=== PATIENT | male | born 1965 | race African-American/Black ===

== ENCOUNTER 2021-03-04 22:49 | Inpatient (IN) ==
[2021-03-04 23:20] LABS: Basophils % 0.2 % (0.0-0.8); Hematocrit 44.1 VOL% (42.0-52.0); Hemoglobin 13.5 GM/DL (14.0-18.0); Immature Granulocytes % 0.9 %; Lymphocytes % 8.9 % (21.2-54.2); Mean Corpuscular HGB Conc 30.6 GM/DL (32-36); Mean Platelet Volume 10.2 FL (9.6-12.0); Monocytes % 3.1 % (1.7-12.7); Neutrophils % 86.9 % (38.7-73.9); Platelet Count 367 T/CUMM (130-400); Red Blood Count 5.13 MC/CUMM (3.8-5.5); Red Cell Distribution Width 13.9 % (9.3-17.3); White Blood Count 11.2 T/CUMM (4-12)
[2021-03-04 23:29] LABS: PT Patient Result 11.4 SECS (10.5-12.0); Partial Thromboplastin Time 28.2 SECS (23.9-33.8)
[2021-03-04 23:40] LABS: ABG Base Excess 2.7 MMOL/L (-2.5-2.5); ABG HCO3 26.9 MMOL/L (20-26); ABG Oxygen Saturation 87.5 % (95-100); ABG PCO2 40.3 MM HG (35-48); ABG PH 7.443 (7.35-7.45); ABG PO2 59.4 MM HG (80-95); ABG TCO2 28.2 MMOL/L (23-27)
[2021-03-04 23:42] LABS: Alanine Aminotransferase 48 U/L (16-61); Alkaline Phosphatase 59 U/L (45-117); Aspartate Amino Transferase 66 U/L (0-37); Blood Urea Nitrogen 14 MG/DL (7-18); Calcium 8.5 MG/DL (8.5-10.1); Carbon Dioxide 26 MMOL/L (21-32); Estimated Glom Filtration Rate 188 ML/MIN; Ferritin 1261.8 ng/ml (26-388); Glucose 137 MG/DL (74-106); Osmolality,Calculated 268.4 MOS/KG (273-304); Potassium 3.8 MMOL/L (3.5-5.1); Sodium 133 MMOL/L (136-145); Total Protein 7.3 G/DL (6.4-8.2)
[2021-03-05] MEDS ORDERED: DEXAMETHASONE 4 MG/1 ML VIAL IV STA (00:16)
[2021-03-05] MEDS ORDERED: SODIUM CHLORIDE 0.9% 1,000 ML IV STA (00:16)
[2021-03-05] MEDS ORDERED: cefTRIAXone 2,000 MG in SODIUM CHLORIDE 0.9% 100 ML IV STA (00:16)
[2021-03-05] MEDS ORDERED: TOCILIZUMAB 800 MG in SODIUM CHLORIDE 0.9% 100 ML IV ONE (00:26)
[2021-03-05] MEDS ORDERED: SODIUM CHLORIDE 0.9% 2,000 ML IV STA (00:29)
[2021-03-05] MEDS: AZITHROMYCIN INJ 500 MG in SODIUM CHLORIDE 0.9% 250 ML IV SCH (01:15)
[2021-03-05] MEDS ORDERED: ALBUTEROL INHALER 18 GM INH PRN (03:03)
[2021-03-05] MEDS: ALBUTEROL INHALER 18 GM INH SCH ×4 (08:27→18:07)
[2021-03-05] MEDS: CHOLECALCIFEROL 1,000 UNIT TABLET PO SCH (08:27)
[2021-03-05] MEDS: DEXAMETHASONE 4 MG/1 ML VIAL IV SCH (08:27)
[2021-03-05] MEDS: ASCORBIC ACID 500 MG TABLET PO SCH ×2 (08:27→21:30)
[2021-03-05] MEDS: ZINC GLUCONATE 50 MG TABLET PO SCH (08:27)
[2021-03-05] MEDS: FAMOTIDINE 20 MG TABLET PO SCH ×2 (08:27→21:30)
[2021-03-05 09:16] LABS: Ferritin 1275.5 ng/ml (26-388)
[2021-03-05] MEDS ORDERED: ENOXAPARIN 150 MG/ML SYRINGE SUBCUT SCH (12:30)
[2021-03-05] MEDS: cefTRIAXone 1,000 MG in SODIUM CHLORIDE 0.9% 100 ML IV SCH (21:50)
[2021-03-06] MEDS: AZITHROMYCIN INJ 500 MG in SODIUM CHLORIDE 0.9% 250 ML IV SCH (01:16)
[2021-03-06] MEDS: ALBUTEROL INHALER 18 GM INH SCH ×6 (01:20→21:17)
[2021-03-06 06:04] LABS: Basophils % 0.1 % (0.0-0.8); Hematocrit 42.4 VOL% (42.0-52.0); Immature Granulocytes Absolute 0.09 #; Lymphocytes # 0.7 10*3/uL (1.4-4.0); Lymphocytes % 7.4 % (21.2-54.2); Mean Corpuscular HGB Conc 30.7 GM/DL (32-36); Mean Corpuscular Volume 87.6 FL (87-102); Mean Platelet Volume 10.6 FL (9.6-12.0); Monocytes % 5.6 % (1.7-12.7); Neutrophils % 85.9 % (38.7-73.9); Platelet Count 332 T/CUMM (130-400); Red Blood Count 4.84 MC/CUMM (3.8-5.5); Red Cell Distribution Width 14.2 % (9.3-17.3); White Blood Count 9.2 T/CUMM (4-12)
[2021-03-06 06:36] LABS: Albumin 2.4 G/DL (3.4-5.0); Bilirubin,Total 1.1 MG/DL (0.20-1.00); Calcium 8.8 MG/DL (8.5-10.1); Ferritin 1105.4 ng/ml (26-388); Osmolality,Calculated 276.5 MOS/KG (273-304); Total Protein 7.4 G/DL (6.4-8.2)
[2021-03-06 07:34] LABS: Sedimentation Rate-Westergren 54 MM/HR (0-20)
[2021-03-06] MEDS: ZINC GLUCONATE 50 MG TABLET PO SCH (10:21)
[2021-03-06] MEDS: DEXAMETHASONE 4 MG/1 ML VIAL IV SCH (10:21)
[2021-03-06] MEDS: CHOLECALCIFEROL 1,000 UNIT TABLET PO SCH (10:21)
[2021-03-06] MEDS: FAMOTIDINE 20 MG TABLET PO SCH ×2 (10:21→21:17)
[2021-03-06] MEDS: ASCORBIC ACID 500 MG TABLET PO SCH ×2 (10:21→21:17)
[2021-03-06] MEDS ORDERED: ENOXAPARIN 150 MG/ML SYRINGE SUBCUT SCH (11:00)
[2021-03-06] MEDS ORDERED: REMDESIVIR 200 MG in SODIUM CHLORIDE 0.9% 210 ML IV ONE (11:00)
[2021-03-06] MEDS: RIVAROXABAN 20 MG TABLET PO SCH (12:37)
[2021-03-06] MEDS: cefTRIAXone 1,000 MG in SODIUM CHLORIDE 0.9% 100 ML IV SCH (21:17)
[2021-03-07] MEDS: ALBUTEROL INHALER 18 GM INH SCH ×7 (01:13→22:12)
[2021-03-07] MEDS: AZITHROMYCIN INJ 500 MG in SODIUM CHLORIDE 0.9% 250 ML IV SCH (01:58)
[2021-03-07] MEDS: MELATONIN 3 MG TABLET PO PRN (02:25)
[2021-03-07 05:46] LABS: Basophils % 0.3 % (0.0-0.8); Hematocrit 41.6 VOL% (42.0-52.0); Hemoglobin 12.9 GM/DL (14.0-18.0); Immature Granulocytes % 1.5 %; Immature Granulocytes Absolute 0.17 #; Lymphocytes # 0.8 10*3/uL (1.4-4.0); Lymphocytes % 7.2 % (21.2-54.2); Mean Corpuscular Volume 87.9 FL (87-102); Mean Platelet Volume 10.1 FL (9.6-12.0); Monocytes % 5.6 % (1.7-12.7); NRBC # 0.03 10*3/uL; Neutrophils % 85.4 % (38.7-73.9); Platelet Count 332 T/CUMM (130-400); Red Blood Count 4.73 MC/CUMM (3.8-5.5); Red Cell Distribution Width 13.9 % (9.3-17.3); White Blood Count 11.1 T/CUMM (4-12)
[2021-03-07 06:17] LABS: Albumin 2.3 G/DL (3.4-5.0); Bilirubin,Total 0.6 MG/DL (0.20-1.00); Calcium 8.9 MG/DL (8.5-10.1); Ferritin 1124.3 ng/mL (26-388); Osmolality,Calculated 274.7 MOS/KG (273-304); Potassium 3.9 MMOL/L (3.5-5.1); Total Protein 7.3 G/DL (6.4-8.2)
[2021-03-07 07:13] LABS: Sedimentation Rate-Westergren 55 MM/HR (0-20)
[2021-03-07] MEDS: ASCORBIC ACID 500 MG TABLET PO SCH ×2 (09:14→21:17)
[2021-03-07] MEDS: ZINC GLUCONATE 50 MG TABLET PO SCH (09:14)
[2021-03-07] MEDS: FAMOTIDINE 20 MG TABLET PO SCH ×2 (09:15→21:16)
[2021-03-07] MEDS: CHOLECALCIFEROL 1,000 UNIT TABLET PO SCH (09:15)
[2021-03-07] MEDS: DEXAMETHASONE 4 MG/1 ML VIAL IV SCH (09:15)
[2021-03-07] MEDS: RIVAROXABAN 20 MG TABLET PO SCH (09:15)
[2021-03-07] MEDS: REMDESIVIR 100 MG in SODIUM CHLORIDE 0.9% 100 ML IV SCH (11:22)
[2021-03-07 15:05] LABS: ABG Base Excess 6.1 MMOL/L (-2.5-2.5); ABG HCO3 29.6 MMOL/L (20-26); ABG Oxygen Saturation 82.1 % (95-100); ABG PCO2 42.6 MM HG (35-48); ABG PH 7.464 (7.35-7.45); ABG PO2 48.7 MM HG (80-95); ABG TCO2 26.7 MMOL/L (23-27)
[2021-03-07] MEDS: cefTRIAXone 1,000 MG in SODIUM CHLORIDE 0.9% 100 ML IV SCH (21:17)
[2021-03-07] MEDS ORDERED: VECURONIUM 10 MG VIAL IV ONE ×2 (22:02→22:45)
[2021-03-07] MEDS ORDERED: ETOMIDATE 20 MG/10 ML VIAL IV ONE ×3 (22:02→22:43)
[2021-03-07] MEDS ORDERED: methylPREDNISolone SOD SUC 125 MG/2 ML VIAL IV STA (22:10)
[2021-03-07] MEDS ORDERED: methylPREDNISolone SOD SUC 125 MG/2 ML VIAL ONE (22:11)
[2021-03-07 22:28] LABS: ABG Base Excess 4.9 MMOL/L (-2.5-2.5); ABG HCO3 28.1 MMOL/L (20-26); ABG Oxygen Saturation 67.4 % (95-100); ABG PCO2 46.5 MM HG (35-48); ABG PH 7.421 (7.35-7.45); ABG TCO2 26.5 MMOL/L (23-27)
[2021-03-07 22:31] LABS: ABG PO2 39.8 MM HG (80-95)
[2021-03-08 00:02] LABS: ABG Base Excess -1.4 MMOL/L (-2.5-2.5); ABG HCO3 23.2 MMOL/L (20-26); ABG Oxygen Saturation 94.8 % (95-100); ABG PCO2 64.1 MM HG (35-48); ABG PH 7.247 (7.35-7.45); ABG PO2 98.9 MM HG (80-95); ABG TCO2 24.8 MMOL/L (23-27)
[2021-03-08] MEDS ORDERED: MIDAZOLAM 10 MG/2 ML VIAL ONE (00:11)
[2021-03-08] MEDS ORDERED: ROCURONIUM 100 MG/10 ML VIAL IV ONE ×2 (00:17→00:33)
[2021-03-08] MEDS ORDERED: fentaNYL 100 MCG/2 ML VIAL ONE (00:17)
[2021-03-08] MEDS ORDERED: fentaNYL 100 MCG/2 ML VIAL IV ONE (00:33)
[2021-03-08] MEDS ORDERED: MIDAZOLAM 2 MG/2 ML VIAL IV ONE (00:33)
[2021-03-08] MEDS: ALBUTEROL INHALER 18 GM INH SCH ×6 (02:29→23:40)
[2021-03-08 02:34] LABS: Bacteria,Urine Occasional /HPF (Few); Bilirubin,Urine Negative (Negative); Blood, Urine Negative (Negative); Glucose,Urine (UA) >=500 mg/dL (Negative); Ketones,Urine 5 mg/dL (Negative); Mucus,Urine Many /LPF (Occasional); Nitrite,Urine Negative (Negative); Protein,Urine >=500 MG/DL; RBC,Urine 37 /HPF (0-4); Urine Appearance CLOUDY (Clear); Urine Urobilinogen < 2.0 EU/DL (0.2-1.0)
[2021-03-08 02:35] LABS: Urine Color Yellow (Yellow)
[2021-03-08] MEDS: PHENYLEPHRINE DRIP 40 MG/250 ML PREMIX IV PRN ×2 (04:00→08:11)
[2021-03-08 04:44] LABS: ABG Base Excess -0.1 MMOL/L (-2.5-2.5); ABG HCO3 24.4 MMOL/L (20-26); ABG Oxygen Saturation 99.3 % (95-100); ABG PCO2 58.3 MM HG (35-48); ABG PH 7.289 (7.35-7.45); ABG TCO2 24.9 MMOL/L (23-27); Allen Test Positive; Pt O2 Delivery Device Ventilator
[2021-03-08 05:10] LABS: Basophils % 0.2 % (0.0-0.8); Hematocrit 41.2 VOL% (42.0-52.0); Hemoglobin 12.4 GM/DL (14.0-18.0); Immature Granulocytes Absolute 0.74 #; Lymphocytes # 0.6 10*3/uL (1.4-4.0); Lymphocytes % 3.3 % (21.2-54.2); Mean Corpuscular HGB Conc 30.1 GM/DL (32-36); Mean Corpuscular Volume 89.6 FL (87-102); Mean Platelet Volume 10.3 FL (9.6-12.0); Monocytes % 3.1 % (1.7-12.7); NRBC # 0.14 10*3/uL; Neutrophils % 89.4 % (38.7-73.9); Platelet Count 319 T/CUMM (130-400); Red Cell Distribution Width 14.1 % (9.3-17.3); White Blood Count 18.6 T/CUMM (4-12)
[2021-03-08 05:31] LABS: Hypochromasia Slight; Lymphocytes 3 % (20-55); Platelet Estimate Adequate; Segmented Neutrophils 96 % (50-85); Total Cells Counted 100
[2021-03-08 05:39] LABS: Albumin 2.3 G/DL (3.4-5.0); Bilirubin,Total 1.3 MG/DL (0.20-1.00); Calcium 8.5 MG/DL (8.5-10.1); Ferritin 1785.9 ng/mL (26-388); Osmolality,Calculated 289.1 MOS/KG (273-304); Potassium 4.5 MMOL/L (3.5-5.1); Total Protein 7.3 G/DL (6.4-8.2)
[2021-03-08] MEDS ORDERED: SODIUM CHLORIDE 0.9% 500 ML IV ONE (06:06)
[2021-03-08 07:26] LABS: Sedimentation Rate-Westergren 67 MM/HR (0-20)
[2021-03-08] MEDS: MIDAZOLAM 100 MG in SODIUM CHLORIDE 0.9% 80 ML IV PRN ×2 (07:55→14:36)
[2021-03-08] MEDS: ASCORBIC ACID 500 MG TABLET PO SCH ×2 (08:53→20:15)
[2021-03-08] MEDS: RIVAROXABAN 20 MG TABLET PO SCH (08:53)
[2021-03-08] MEDS: DEXAMETHASONE 4 MG/1 ML VIAL IV SCH (08:53)
[2021-03-08] MEDS: AZITHROMYCIN 250 MG TABLET PO SCH (08:54)
[2021-03-08] MEDS: FAMOTIDINE 20 MG TABLET PO SCH ×2 (08:54→20:15)
[2021-03-08] MEDS: CHOLECALCIFEROL 1,000 UNIT TABLET PO SCH (08:54)
[2021-03-08] MEDS: ZINC GLUCONATE 50 MG TABLET PO SCH (08:54)
[2021-03-08] MEDS: REMDESIVIR 100 MG in SODIUM CHLORIDE 0.9% 100 ML IV SCH (10:11)
[2021-03-08] MEDS ORDERED: SODIUM CHLORIDE 0.9% 1,000 ML IV ONE (11:00)
[2021-03-08] MEDS: methylPREDNISolone SOD SUC 40 MG/1 ML VIAL IV SCH ×2 (12:25→20:15)
[2021-03-08] MEDS: SODIUM CHLORIDE 0.9% 1,000 ML IV SCH ×3 (12:40→23:14)
[2021-03-08] MEDS: INSULIN LISPRO 100 UNIT/ML SUBCUT SCH ×2 (13:49→18:36)
[2021-03-08] MEDS: cefTRIAXone 1,000 MG in SODIUM CHLORIDE 0.9% 100 ML IV SCH (20:15)
[2021-03-09] MEDS: INSULIN LISPRO 100 UNIT/ML SUBCUT SCH ×4 (00:46→18:00)
[2021-03-09] MEDS: methylPREDNISolone SOD SUC 40 MG/1 ML VIAL IV SCH ×3 (03:34→20:31)
[2021-03-09] MEDS: ALBUTEROL INHALER 18 GM INH SCH ×6 (03:34→23:04)
[2021-03-09 03:35] LABS: ABG Base Excess 1.1 MMOL/L (-2.5-2.5); ABG HCO3 25.4 MMOL/L (20-26); ABG Oxygen Saturation 96.9 % (95-100); ABG PCO2 51.5 MM HG (35-48); ABG TCO2 24.9 MMOL/L (23-27)
[2021-03-09 05:05] LABS: Basophils % 0.1 % (0.0-0.8); Hematocrit 37.4 VOL% (42.0-52.0); Hemoglobin 11.4 GM/DL (14.0-18.0); Immature Granulocytes % 1.9 %; Immature Granulocytes Absolute 0.27 #; Lymphocytes # 0.6 10*3/uL (1.4-4.0); Mean Corpuscular HGB Conc 30.5 GM/DL (32-36); Mean Corpuscular Volume 89.5 FL (87-102); Mean Platelet Volume 10.6 FL (9.6-12.0); Monocytes % 5.4 % (1.7-12.7); NRBC # 0.05 10*3/uL; Neutrophils % 88.6 % (38.7-73.9); Platelet Count 248 T/CUMM (130-400); Red Blood Count 4.18 MC/CUMM (3.8-5.5); Red Cell Distribution Width 14.1 % (9.3-17.3); White Blood Count 13.9 T/CUMM (4-12)
[2021-03-09] MEDS: SODIUM CHLORIDE 0.9% 1,000 ML IV SCH ×4 (05:07→18:26)
[2021-03-09 05:39] LABS: Eosinophils 1 % (0-10); Hypochromasia 1+; Lymphocytes 2 % (20-55); Microcytosis 1+; Platelet Estimate Adequate; Segmented Neutrophils 95 % (50-85); Total Cells Counted 100
[2021-03-09 05:47] LABS: Bilirubin,Total 0.4 MG/DL (0.20-1.00); Calcium 8.4 MG/DL (8.5-10.1); Ferritin 2412.8 ng/mL (26-388); Osmolality,Calculated 303.6 MOS/KG (273-304); Potassium 4.3 MMOL/L (3.5-5.1); Total Protein 6.6 G/DL (6.4-8.2)
[2021-03-09] MEDS: ASCORBIC ACID 500 MG TABLET PO SCH ×2 (08:20→20:31)
[2021-03-09] MEDS: ZINC GLUCONATE 50 MG TABLET PO SCH (08:20)
[2021-03-09] MEDS: FAMOTIDINE 20 MG TABLET PO SCH ×2 (08:21→20:32)
[2021-03-09] MEDS: CHOLECALCIFEROL 1,000 UNIT TABLET PO SCH (08:21)
[2021-03-09] MEDS: AZITHROMYCIN 250 MG TABLET PO SCH (08:21)
[2021-03-09] MEDS: RIVAROXABAN 20 MG TABLET PO SCH (08:21)
[2021-03-09] MEDS: REMDESIVIR 100 MG in SODIUM CHLORIDE 0.9% 100 ML IV SCH (08:35)
[2021-03-09] MEDS ORDERED: HEPARIN 5,000 UNIT/1 ML VIAL SUBCUT SCH (15:00)
[2021-03-09] MEDS: ACETAMINOPHEN 325 MG TABLET PO PRN (19:08)
[2021-03-09] MEDS: cefTRIAXone 1,000 MG in SODIUM CHLORIDE 0.9% 100 ML IV SCH (20:32)
[2021-03-09] MEDS: ENOXAPARIN 80 MG/0.8 ML SYRINGE SUBCUT SCH (20:32)
[2021-03-10] MEDS: INSULIN LISPRO 100 UNIT/ML SUBCUT SCH ×4 (00:05→18:05)
[2021-03-10] MEDS: methylPREDNISolone SOD SUC 40 MG/1 ML VIAL IV SCH ×3 (02:11→22:24)
[2021-03-10] MEDS: ALBUTEROL INHALER 18 GM INH SCH ×6 (02:11→22:24)
[2021-03-10] MEDS: SODIUM CHLORIDE 0.9% 1,000 ML IV SCH (03:27)
[2021-03-10 03:33] LABS: ABG Oxygen Saturation 94.7 % (95-100); ABG PCO2 49.4 MM HG (35-48); ABG PH 7.377 (7.35-7.45); ABG PO2 80.3 MM HG (80-95)
[2021-03-10 05:31] LABS: Basophils % 0.2 % (0.0-0.8); Hematocrit 35.8 VOL% (42.0-52.0); Immature Granulocytes % 2.2 %; Immature Granulocytes Absolute 0.29 #; Lymphocytes # 0.5 10*3/uL (1.4-4.0); Mean Corpuscular HGB Conc 30.7 GM/DL (32-36); Mean Corpuscular Volume 89.9 FL (87-102); Mean Platelet Volume 10.9 FL (9.6-12.0); Monocytes % 4.5 % (1.7-12.7); NRBC # 0.05 10*3/uL; Neutrophils % 89.1 % (38.7-73.9); Platelet Count 307 T/CUMM (130-400); Red Blood Count 3.98 MC/CUMM (3.8-5.5); Red Cell Distribution Width 13.8 % (9.3-17.3)
[2021-03-10 05:39] LABS: Hypochromasia 1+; Lymphocytes 2 % (20-55); Microcytosis 1+; Platelet Estimate Adequate; Segmented Neutrophils 94 % (50-85); Total Cells Counted 100
[2021-03-10 05:45] LABS: Calcium 8.5 MG/DL (8.5-10.1); Osmolality,Calculated 306.3 MOS/KG (273-304); Potassium 4.7 MMOL/L (3.5-5.1)
[2021-03-10] MEDS: ASCORBIC ACID 500 MG TABLET PO SCH ×2 (08:04→20:12)
[2021-03-10] MEDS: FAMOTIDINE 20 MG TABLET PO SCH ×2 (08:04→20:12)
[2021-03-10] MEDS: ZINC GLUCONATE 50 MG TABLET PO SCH (08:04)
[2021-03-10] MEDS: CHOLECALCIFEROL 1,000 UNIT TABLET PO SCH (08:04)
[2021-03-10] MEDS: SODIUM CHLOR 0.45% KCL 20 MEQ 20 MEQ/1,000 ML BAG IV SCH (12:33)
[2021-03-10] MEDS: ENOXAPARIN 80 MG/0.8 ML SYRINGE SUBCUT SCH (20:07)
[2021-03-11] MEDS: SODIUM CHLOR 0.45% KCL 20 MEQ 20 MEQ/1,000 ML BAG IV SCH ×2 (00:41→13:14)
[2021-03-11] MEDS: INSULIN LISPRO 100 UNIT/ML SUBCUT SCH ×4 (00:52→17:15)
[2021-03-11] MEDS: ALBUTEROL INHALER 18 GM INH SCH ×5 (02:52→18:46)
[2021-03-11 04:16] LABS: ABG Base Excess 3.9 MMOL/L (-2.5-2.5); ABG HCO3 29.8 MMOL/L (20-26); ABG Oxygen Saturation 95.9 % (95-100); ABG PCO2 50.4 MM HG (35-48); ABG PH 7.389 (7.35-7.45); ABG PO2 90.8 MM HG (80-95); ABG TCO2 31.3 MMOL/L (23-27); Allen Test Positive; Pt O2 Delivery Device Ventilator
[2021-03-11 05:02] LABS: Basophils % 0.1 % (0.0-0.8); Hematocrit 37.8 VOL% (42.0-52.0); Hemoglobin 11.4 GM/DL (14.0-18.0); Immature Granulocytes % 2.4 %; Immature Granulocytes Absolute 0.34 #; Lymphocytes # 0.7 10*3/uL (1.4-4.0); Lymphocytes % 5.2 % (21.2-54.2); Mean Corpuscular HGB Conc 30.2 GM/DL (32-36); Mean Corpuscular Volume 89.2 FL (87-102); Mean Platelet Volume 11.1 FL (9.6-12.0); Monocytes % 5.5 % (1.7-12.7); NRBC # 0.06 10*3/uL; Neutrophils % 86.8 % (38.7-73.9); Platelet Count 351 T/CUMM (130-400); Red Blood Count 4.24 MC/CUMM (3.8-5.5); Red Cell Distribution Width 13.6 % (9.3-17.3)
[2021-03-11 05:31] LABS: Bilirubin,Direct 0.17 MG/DL (0.0-0.20); Bilirubin,Indirect 0.3 MG/DL (0.0-1.0); Bilirubin,Total 0.5 MG/DL (0.20-1.00); Calcium 8.7 MG/DL (8.5-10.1); Ferritin 1042.8 ng/mL (26-388); Osmolality,Calculated 303.6 MOS/KG (273-304); Potassium 5.4 MMOL/L (3.5-5.1); Total Protein 6.4 G/DL (6.4-8.2)
[2021-03-11] MEDS: ASCORBIC ACID 500 MG TABLET PO SCH ×2 (09:45→20:21)
[2021-03-11] MEDS: ZINC GLUCONATE 50 MG TABLET PO SCH (09:45)
[2021-03-11] MEDS: CHOLECALCIFEROL 1,000 UNIT TABLET PO SCH (09:45)
[2021-03-11] MEDS: FAMOTIDINE 20 MG TABLET PO SCH ×2 (09:45→20:21)
[2021-03-11] MEDS: methylPREDNISolone SOD SUC 40 MG/1 ML VIAL IV SCH ×2 (10:40→22:40)
[2021-03-11] MEDS ORDERED: SODIUM POLYSTYRENE SULFATE 15 GM/60 ML BOTTLE PO ONE (10:56)
[2021-03-11] MEDS: SODIUM CHLORIDE 0.45% 1,000 ML IV SCH (11:40)
[2021-03-11] MEDS: MIDAZOLAM 100 MG in SODIUM CHLORIDE 0.9% 80 ML IV PRN ×2 (12:37→22:44)
[2021-03-11] MEDS: fentaNYL INJ 1,250 MCG in SODIUM CHLORIDE 0.9% 225 ML IV PRN ×2 (13:30→20:26)
[2021-03-11] MEDS: ENOXAPARIN 80 MG/0.8 ML SYRINGE SUBCUT SCH (20:20)
[2021-03-12] MEDS: INSULIN LISPRO 100 UNIT/ML SUBCUT SCH ×4 (00:11→18:09)
[2021-03-12] MEDS: ALBUTEROL INHALER 18 GM INH SCH ×6 (00:14→20:50)
[2021-03-12] MEDS: SODIUM CHLOR 0.45% KCL 20 MEQ 20 MEQ/1,000 ML BAG IV SCH ×2 (03:11→17:28)
[2021-03-12 04:22] LABS: Basophils % 0.1 % (0.0-0.8); Eosinophils % 0.1 % (0.00-10.9); Hematocrit 36.3 VOL% (42.0-52.0); Hemoglobin 11.2 GM/DL (14.0-18.0); Immature Granulocytes % 1.1 %; Immature Granulocytes Absolute 0.15 #; Lymphocytes # 0.4 10*3/uL (1.4-4.0); Lymphocytes % 2.8 % (21.2-54.2); Mean Corpuscular HGB Conc 30.9 GM/DL (32-36); Mean Corpuscular Volume 88.1 FL (87-102); Mean Platelet Volume 10.7 FL (9.6-12.0); Monocytes % 3.8 % (1.7-12.7); NRBC # 0.02 10*3/uL; Neutrophils % 92.1 % (38.7-73.9); Platelet Count 327 T/CUMM (130-400); Red Blood Count 4.12 MC/CUMM (3.8-5.5); Red Cell Distribution Width 13.2 % (9.3-17.3); White Blood Count 14.2 T/CUMM (4-12)
[2021-03-12 04:29] LABS: ABG Base Excess 5.8 MMOL/L (-2.5-2.5); ABG HCO3 29.6 MMOL/L (20-26); ABG Oxygen Saturation 91.5 % (95-100); ABG PCO2 51.9 MM HG (35-48); ABG PH 7.397 (7.35-7.45); ABG PO2 66.9 MM HG (80-95); ABG TCO2 28.7 MMOL/L (23-27); Allen Test Positive; Pt O2 Delivery Device Ventilator
[2021-03-12] MEDS: fentaNYL INJ 1,250 MCG in SODIUM CHLORIDE 0.9% 225 ML IV PRN (04:44)
[2021-03-12 04:47] LABS: Calcium 8.6 MG/DL (8.5-10.1); Ferritin 703.5 ng/mL (26-388); Osmolality,Calculated 294.3 MOS/KG (273-304); Potassium 5.1 MMOL/L (3.5-5.1)
[2021-03-12] MEDS: MIDAZOLAM 100 MG in SODIUM CHLORIDE 0.9% 80 ML IV PRN ×3 (05:10→19:06)
[2021-03-12 06:25] LABS: Anisocytosis 1+; Lymphocytes 4 % (20-55); Platelet Estimate Normal; Segmented Neutrophils 92 % (50-85); Total Cells Counted 100
[2021-03-12] MEDS: CHOLECALCIFEROL 1,000 UNIT TABLET PO SCH (09:04)
[2021-03-12] MEDS: ASCORBIC ACID 500 MG TABLET PO SCH ×2 (09:04→20:47)
[2021-03-12] MEDS: ZINC GLUCONATE 50 MG TABLET PO SCH (09:04)
[2021-03-12] MEDS: FAMOTIDINE 20 MG TABLET PO SCH ×2 (09:04→20:47)
[2021-03-12] MEDS: SODIUM CHLORIDE 0.45% 1,000 ML IV SCH (09:19)
[2021-03-12] MEDS: methylPREDNISolone SOD SUC 40 MG/1 ML VIAL IV SCH ×2 (10:05→21:51)
[2021-03-12] MEDS: fentaNYL INJ 2,500 MCG in SODIUM CHLORIDE 0.9% 75 ML IV PRN (13:13)
[2021-03-12] MEDS: ENOXAPARIN 80 MG/0.8 ML SYRINGE SUBCUT SCH (20:48)
[2021-03-13] MEDS: INSULIN LISPRO 100 UNIT/ML SUBCUT SCH ×4 (00:33→18:37)
[2021-03-13] MEDS: ALBUTEROL INHALER 18 GM INH SCH ×6 (00:33→21:05)
[2021-03-13] MEDS: MIDAZOLAM 100 MG in SODIUM CHLORIDE 0.9% 80 ML IV PRN ×3 (03:03→18:01)
[2021-03-13] MEDS: fentaNYL INJ 2,500 MCG in SODIUM CHLORIDE 0.9% 75 ML IV PRN ×2 (03:21→18:38)
[2021-03-13] MEDS: SODIUM CHLOR 0.45% KCL 20 MEQ 20 MEQ/1,000 ML BAG IV SCH (04:28)
[2021-03-13 04:35] LABS: ABG Base Excess 8.9 MMOL/L (-2.5-2.5); ABG HCO3 33.2 MMOL/L (20-26); ABG Oxygen Saturation 96.3 % (95-100); ABG PCO2 43.7 MM HG (35-48); ABG PH 7.498 (7.35-7.45); ABG PO2 87.4 MM HG (80-95); ABG TCO2 34.5 MMOL/L (23-27); Allen Test Positive; Pt O2 Delivery Device Ventilator
[2021-03-13 05:17] LABS: Basophils % 0.1 % (0.0-0.8); Eosinophils % 0.2 % (0.00-10.9); Hematocrit 36.9 VOL% (42.0-52.0); Hemoglobin 11.4 GM/DL (14.0-18.0); Immature Granulocytes Absolute 0.16 #; Lymphocytes # 0.6 10*3/uL (1.4-4.0); Mean Corpuscular HGB Conc 30.9 GM/DL (32-36); Mean Corpuscular Volume 86.6 FL (87-102); Mean Platelet Volume 10.3 FL (9.6-12.0); Monocytes % 6.1 % (1.7-12.7); Neutrophils % 88.6 % (38.7-73.9); Platelet Count 341 T/CUMM (130-400); Red Blood Count 4.26 MC/CUMM (3.8-5.5); Red Cell Distribution Width 13.3 % (9.3-17.3); White Blood Count 15.5 T/CUMM (4-12)
[2021-03-13 05:44] LABS: Hypochromasia 1+; Lymphocytes 6 % (20-55); Microcytosis 1+; Platelet Estimate Adequate; Segmented Neutrophils 87 % (50-85); Total Cells Counted 100
[2021-03-13 05:55] LABS: Bilirubin,Direct 0.17 MG/DL (0.0-0.20); Bilirubin,Indirect 0.7 MG/DL (0.0-1.0); Bilirubin,Total 0.9 MG/DL (0.20-1.00); Calcium 8.8 MG/DL (8.5-10.1); Ferritin 666.9 ng/mL (26-388); Osmolality,Calculated 288.7 MOS/KG (273-304); Total Protein 5.9 G/DL (6.4-8.2)
[2021-03-13] MEDS: SODIUM CHLORIDE 0.45% 1,000 ML IV SCH ×2 (06:14→14:36)
[2021-03-13] MEDS: CHOLECALCIFEROL 1,000 UNIT TABLET PO SCH (08:24)
[2021-03-13] MEDS: ZINC GLUCONATE 50 MG TABLET PO SCH (08:24)
[2021-03-13] MEDS: ASCORBIC ACID 500 MG TABLET PO SCH ×2 (08:24→21:06)
[2021-03-13] MEDS: FAMOTIDINE 20 MG TABLET PO SCH ×2 (08:24→21:06)
[2021-03-13] MEDS: methylPREDNISolone SOD SUC 40 MG/1 ML VIAL IV SCH ×2 (09:32→21:36)
[2021-03-13] MEDS: ENOXAPARIN 80 MG/0.8 ML SYRINGE SUBCUT SCH ×2 (10:10→21:07)
[2021-03-14] MEDS: ALBUTEROL INHALER 18 GM INH SCH ×7 (00:33→22:43)
[2021-03-14] MEDS: INSULIN LISPRO 100 UNIT/ML SUBCUT SCH ×4 (00:35→17:30)
[2021-03-14] MEDS: SODIUM CHLORIDE 0.45% 1,000 ML IV SCH ×3 (01:51→20:25)
[2021-03-14] MEDS: MIDAZOLAM 100 MG in SODIUM CHLORIDE 0.9% 80 ML IV PRN ×3 (01:55→18:17)
[2021-03-14] MEDS: ACETAMINOPHEN 325 MG TABLET PO PRN (02:21)
[2021-03-14 04:07] LABS: Allen Test Positive; Pt O2 Delivery Device Ventilator
[2021-03-14 04:12] LABS: ABG Base Excess 6.3 MMOL/L (-2.5-2.5); ABG HCO3 30.1 MMOL/L (20-26); ABG Oxygen Saturation 95.1 % (95-100); ABG PCO2 47.1 MM HG (35-48); ABG PH 7.435 (7.35-7.45); ABG PO2 81.3 MM HG (80-95); ABG TCO2 27.9 MMOL/L (23-27)
[2021-03-14 05:20] LABS: Basophils % 0.1 % (0.0-0.8); Eosinophils % 0.2 % (0.00-10.9); Hematocrit 36.5 VOL% (42.0-52.0); Hemoglobin 11.3 GM/DL (14.0-18.0); Immature Granulocytes % 1.1 %; Immature Granulocytes Absolute 0.21 #; Lymphocytes # 0.6 10*3/uL (1.4-4.0); Lymphocytes % 2.9 % (21.2-54.2); Mean Corpuscular Volume 87.1 FL (87-102); Mean Platelet Volume 11.1 FL (9.6-12.0); Monocytes % 5.8 % (1.7-12.7); Neutrophils % 89.9 % (38.7-73.9); Platelet Count 363 T/CUMM (130-400); Red Blood Count 4.19 MC/CUMM (3.8-5.5); Red Cell Distribution Width 13.2 % (9.3-17.3); White Blood Count 19.3 T/CUMM (4-12)
[2021-03-14 05:43] LABS: Eosinophils 1 % (0-10); Hypochromasia 1+; Lymphocytes 1 % (20-55); Microcytosis 1+; Platelet Estimate Adequate; Segmented Neutrophils 93 % (50-85); Total Cells Counted 100
[2021-03-14 05:45] LABS: Calcium 8.9 MG/DL (8.5-10.1); Osmolality,Calculated 286.8 MOS/KG (273-304); Potassium 5.3 MMOL/L (3.5-5.1)
[2021-03-14] MEDS ORDERED: SODIUM POLYSTYRENE SULFATE 15 GM/60 ML BOTTLE PO ONE (06:21)
[2021-03-14 06:34] LABS: Sedimentation Rate-Westergren 72 MM/HR (0-20)
[2021-03-14] MEDS: CHOLECALCIFEROL 1,000 UNIT TABLET PO SCH (08:26)
[2021-03-14] MEDS: ASCORBIC ACID 500 MG TABLET PO SCH ×2 (08:26→21:42)
[2021-03-14] MEDS: FAMOTIDINE 20 MG TABLET PO SCH ×2 (08:26→21:42)
[2021-03-14] MEDS: ZINC GLUCONATE 50 MG TABLET PO SCH (08:26)
[2021-03-14] MEDS: fentaNYL INJ 2,500 MCG in SODIUM CHLORIDE 0.9% 75 ML IV PRN (10:15)
[2021-03-14] MEDS: ENOXAPARIN 80 MG/0.8 ML SYRINGE SUBCUT SCH ×2 (10:31→21:43)
[2021-03-14] MEDS: methylPREDNISolone SOD SUC 40 MG/1 ML VIAL IV SCH ×2 (10:31→21:43)
[2021-03-14] MEDS: LEVOFLOXACIN INJ 750 MG/150 ML PREMIX IV SCH (14:13)
[2021-03-14] MEDS: hydrALAZINE 20 MG/1 ML VIAL IV PRN (16:07)
[2021-03-14] MEDS ORDERED: cloNIDine 0.1 MG TABLET PO PRN (17:45)
[2021-03-15] MEDS: INSULIN LISPRO 100 UNIT/ML SUBCUT SCH ×4 (00:43→18:43)
[2021-03-15] MEDS: fentaNYL INJ 2,500 MCG in SODIUM CHLORIDE 0.9% 75 ML IV PRN ×2 (01:15→16:10)
[2021-03-15 02:58] LABS: ABG Base Excess 5.6 MMOL/L (-2.5-2.5); ABG HCO3 29.5 MMOL/L (20-26); ABG Oxygen Saturation 97.5 % (95-100); ABG PCO2 50.6 MM HG (35-48); ABG PH 7.402 (7.35-7.45); ABG TCO2 28.3 MMOL/L (23-27)
[2021-03-15] MEDS: MIDAZOLAM 100 MG in SODIUM CHLORIDE 0.9% 80 ML IV PRN ×3 (03:15→18:51)
[2021-03-15] MEDS: ALBUTEROL INHALER 18 GM INH SCH ×5 (04:23→18:54)
[2021-03-15 04:39] LABS: Basophils % 0.1 % (0.0-0.8); Eosinophils % 0.1 % (0.00-10.9); Hematocrit 34.7 VOL% (42.0-52.0); Hemoglobin 10.7 GM/DL (14.0-18.0); Immature Granulocytes % 1.2 %; Immature Granulocytes Absolute 0.22 #; Lymphocytes # 0.5 10*3/uL (1.4-4.0); Lymphocytes % 2.9 % (21.2-54.2); Mean Corpuscular HGB Conc 30.8 GM/DL (32-36); Monocytes % 5.6 % (1.7-12.7); Neutrophils % 90.1 % (38.7-73.9); Platelet Count 363 T/CUMM (130-400); Red Blood Count 3.99 MC/CUMM (3.8-5.5); Red Cell Distribution Width 13.2 % (9.3-17.3); White Blood Count 17.7 T/CUMM (4-12)
[2021-03-15 04:59] LABS: Hypochromasia 1+; Lymphocytes 3 % (20-55); Microcytosis 1+; Platelet Estimate Adequate; Segmented Neutrophils 94 % (50-85); Total Cells Counted 100
[2021-03-15 05:07] LABS: Calcium 8.6 MG/DL (8.5-10.1); Ferritin 1104.3 ng/mL (26-388); Osmolality,Calculated 290.7 MOS/KG (273-304); Potassium 5.3 MMOL/L (3.5-5.1)
[2021-03-15 06:50] LABS: Sedimentation Rate-Westergren 94 MM/HR (0-20)
[2021-03-15] MEDS: ASCORBIC ACID 500 MG TABLET PO SCH ×2 (08:10→20:11)
[2021-03-15] MEDS: ZINC GLUCONATE 50 MG TABLET PO SCH (08:10)
[2021-03-15] MEDS: FAMOTIDINE 20 MG TABLET PO SCH ×2 (08:10→20:12)
[2021-03-15] MEDS: CHOLECALCIFEROL 1,000 UNIT TABLET PO SCH (08:10)
[2021-03-15] MEDS ORDERED: DEXTROSE 50% 25 GM/50 ML VIAL IV ONE (08:22)
[2021-03-15] MEDS ORDERED: INSULIN REGULAR 100 UNIT/ML IV ONE (08:23)
[2021-03-15] MEDS ORDERED: CALCIUM GLUCONATE 1,000 MG in SODIUM CHLORIDE 0.9% 100 ML IV ONE (09:00)
[2021-03-15] MEDS: ENOXAPARIN 80 MG/0.8 ML SYRINGE SUBCUT SCH ×2 (10:05→21:47)
[2021-03-15] MEDS: methylPREDNISolone SOD SUC 40 MG/1 ML VIAL IV SCH ×2 (10:05→21:47)
[2021-03-15] MEDS ORDERED: ROCURONIUM 100 MG/10 ML VIAL IV ONE ×3 (14:52→15:08)
[2021-03-15] MEDS ORDERED: FUROSEMIDE 40 MG/4 ML VIAL ONE (14:58)
[2021-03-15] MEDS ORDERED: FUROSEMIDE 40 MG/4 ML VIAL IV ONE (15:03)
[2021-03-15] MEDS: ROCURONIUM 1,000 MG in SODIUM CHLORIDE 0.9% 175 ML IV PRN (15:47)
[2021-03-15 15:51] LABS: ABG Base Excess 3.5 MMOL/L (-2.5-2.5); ABG HCO3 27.3 MMOL/L (20-26); ABG Oxygen Saturation 86.5 % (95-100); ABG PH 7.229 (7.35-7.45); ABG PO2 66.1 MM HG (80-95); ABG TCO2 31.3 MMOL/L (23-27)
[2021-03-15] MEDS ORDERED: FENTANYL IV PRN (16:30)
[2021-03-15] MEDS ORDERED: SODIUM CHLORIDE 0.9% IV PRN (16:30)
[2021-03-15] MEDS: LEVOFLOXACIN INJ 750 MG/150 ML PREMIX IV SCH (16:47)
[2021-03-15 17:32] LABS: ABG Base Excess 4.5 MMOL/L (-2.5-2.5); ABG HCO3 28.5 MMOL/L (20-26); ABG Oxygen Saturation 98.3 % (95-100); ABG PH 7.284 (7.35-7.45); ABG TCO2 30.5 MMOL/L (23-27)
[2021-03-15 17:34] LABS: ABG PCO2 70.7 MM HG (35-48)
[2021-03-15] MEDS: MELATONIN 3 MG TABLET PO PRN (20:11)
[2021-03-15] MEDS ORDERED: ALBUTEROL/IPRATROPIUM 3 ML NEB RESP TX ONE (23:45)
[2021-03-15] MEDS ORDERED: ACETYLCYSTEINE 20% 800 MG/4 ML VIAL ONE (23:46)
[2021-03-16] MEDS: MIDAZOLAM 100 MG in SODIUM CHLORIDE 0.9% 80 ML IV PRN ×4 (01:23→21:30)
[2021-03-16] MEDS: INSULIN LISPRO 100 UNIT/ML SUBCUT SCH ×4 (02:15→18:33)
[2021-03-16] MEDS: ALBUTEROL INHALER 18 GM INH SCH ×7 (02:15→22:53)
[2021-03-16] MEDS: fentaNYL INJ 5,000 MCG in SODIUM CHLORIDE 0.9% 150 ML IV PRN ×2 (02:16→18:34)
[2021-03-16] MEDS: ACETAMINOPHEN 325 MG TABLET PO PRN ×2 (02:50→20:54)
[2021-03-16] MEDS: PHENYLEPHRINE INJ 160 MG in SODIUM CHLORIDE 0.9% 234 ML IV PRN (04:02)
[2021-03-16 04:05] LABS: ABG Base Excess 3.2 MMOL/L (-2.5-2.5); ABG HCO3 27.2 MMOL/L (20-26); ABG Oxygen Saturation 97.6 % (95-100); ABG TCO2 30.1 MMOL/L (23-27)
[2021-03-16 04:44] LABS: ABG PCO2 74.9 MM HG (35-48)
[2021-03-16 05:10] LABS: Basophils % 0.1 % (0.0-0.8); Hematocrit 35.6 VOL% (42.0-52.0); Hemoglobin 10.6 GM/DL (14.0-18.0); Immature Granulocytes % 3.9 %; Immature Granulocytes Absolute 0.93 #; Lymphocytes # 0.3 10*3/uL (1.4-4.0); Lymphocytes % 1.3 % (21.2-54.2); Mean Corpuscular HGB Conc 29.8 GM/DL (32-36); Mean Corpuscular Volume 91.5 FL (87-102); Mean Platelet Volume 11.8 FL (9.6-12.0); Monocytes % 8.4 % (1.7-12.7); Neutrophils % 86.3 % (38.7-73.9); Platelet Count 419 T/CUMM (130-400); Red Blood Count 3.89 MC/CUMM (3.8-5.5); Red Cell Distribution Width 13.5 % (9.3-17.3); White Blood Count 23.6 T/CUMM (4-12)
[2021-03-16 05:16] LABS: Band Neutrophils 1 % (0-10); Segmented Neutrophils 91 % (50-85); Total Cells Counted 100
[2021-03-16 05:17] LABS: Hypochromasia 1+; Microcytosis 1+; Platelet Estimate Adequate
[2021-03-16 05:54] LABS: Calcium 9.1 MG/DL (8.5-10.1); Ferritin 1439.9 ng/mL (26-388); Potassium 5.6 MMOL/L (3.5-5.1)
[2021-03-16 06:59] LABS: Sedimentation Rate-Westergren 81 MM/HR (0-20)
[2021-03-16] MEDS: ROCURONIUM 1,000 MG in SODIUM CHLORIDE 0.9% 175 ML IV PRN ×2 (08:22→13:54)
[2021-03-16] MEDS ORDERED: SODIUM POLYSTYRENE SULFATE 15 GM/60 ML BOTTLE PO ONE (08:46)
[2021-03-16] MEDS: FAMOTIDINE 20 MG TABLET PO SCH ×2 (09:06→20:54)
[2021-03-16] MEDS: ASCORBIC ACID 500 MG TABLET PO SCH ×2 (09:06→20:54)
[2021-03-16] MEDS: FLUCONAZOLE INJ 200 MG/100 ML PREMIX IV SCH (09:06)
[2021-03-16] MEDS: CHOLECALCIFEROL 1,000 UNIT TABLET PO SCH (09:07)
[2021-03-16] MEDS: ZINC GLUCONATE 50 MG TABLET PO SCH (09:07)
[2021-03-16] MEDS: ENOXAPARIN 80 MG/0.8 ML SYRINGE SUBCUT SCH ×2 (10:47→21:50)
[2021-03-16] MEDS: methylPREDNISolone SOD SUC 40 MG/1 ML VIAL IV SCH ×2 (10:48→21:50)
[2021-03-16] MEDS ORDERED: INSULIN GLARGINE 100 UNIT/ML SUBCUT SCH (13:00)
[2021-03-16] MEDS: LEVOFLOXACIN INJ 750 MG/150 ML PREMIX IV SCH (14:16)
[2021-03-16] MEDS ORDERED: INSULIN REGULAR 100 UNIT/ML IV ONE (16:57)
[2021-03-16] MEDS ORDERED: DEXTROSE 50% 25 GM/50 ML VIAL IV ONE (16:57)
[2021-03-16] MEDS ORDERED: CALCIUM GLUCONATE 1,000 MG in SODIUM CHLORIDE 0.9% 100 ML IV ONE (16:57)
[2021-03-16] MEDS: SODIUM POLYSTYRENE SULFATE 15 GM/60 ML BOTTLE PO SCH (17:30)
[2021-03-16] MEDS: DORNASE ALFA 2.5 MG/2.5 ML VIAL RESP TX SCH (19:56)
[2021-03-16] MEDS: MELATONIN 3 MG TABLET PO PRN (20:54)
[2021-03-17] MEDS: INSULIN LISPRO 100 UNIT/ML SUBCUT SCH ×5 (00:32→23:58)
[2021-03-17] MEDS: SODIUM POLYSTYRENE SULFATE 15 GM/60 ML BOTTLE PO SCH ×3 (00:32→17:08)
[2021-03-17] MEDS: ROCURONIUM 1,000 MG in SODIUM CHLORIDE 0.9% 175 ML IV PRN ×2 (01:18→13:45)
[2021-03-17] MEDS: ALBUTEROL INHALER 18 GM INH SCH ×6 (03:19→22:21)
[2021-03-17 04:49] LABS: ABG Base Excess 8.2 MMOL/L (-2.5-2.5); ABG PCO2 65.2 MM HG (35-48); ABG PH 7.347 (7.35-7.45)
[2021-03-17 04:53] LABS: Basophils % 0.1 % (0.0-0.8); Hematocrit 30.2 VOL% (42.0-52.0); Hemoglobin 9.1 GM/DL (14.0-18.0); Immature Granulocytes % 1.3 %; Immature Granulocytes Absolute 0.16 #; Lymphocytes # 0.4 10*3/uL (1.4-4.0); Lymphocytes % 3.3 % (21.2-54.2); Mean Corpuscular HGB Conc 30.1 GM/DL (32-36); Mean Platelet Volume 10.8 FL (9.6-12.0); Monocytes % 6.6 % (1.7-12.7); Neutrophils % 88.7 % (38.7-73.9); Platelet Count 351 T/CUMM (130-400); Red Blood Count 3.32 MC/CUMM (3.8-5.5); Red Cell Distribution Width 13.5 % (9.3-17.3); White Blood Count 12.1 T/CUMM (4-12)
[2021-03-17] MEDS: MIDAZOLAM 100 MG in SODIUM CHLORIDE 0.9% 80 ML IV PRN ×3 (04:57→18:43)
[2021-03-17 05:19] LABS: Hypochromasia 1+; Lymphocytes 1 % (20-55); Microcytosis 1+; Platelet Estimate Adequate; Segmented Neutrophils 95 % (50-85); Total Cells Counted 100
[2021-03-17 05:20] LABS: Calcium 9.2 MG/DL (8.5-10.1); Osmolality,Calculated 296.3 MOS/KG (273-304); Potassium 5.7 MMOL/L (3.5-5.1)
[2021-03-17] MEDS: INSULIN GLARGINE 100 UNIT/ML SUBCUT SCH (09:02)
[2021-03-17] MEDS: ZINC GLUCONATE 50 MG TABLET PO SCH (09:03)
[2021-03-17] MEDS: ASCORBIC ACID 500 MG TABLET PO SCH ×2 (09:03→20:38)
[2021-03-17] MEDS: FAMOTIDINE 20 MG TABLET PO SCH ×2 (09:03→20:38)
[2021-03-17] MEDS: CHOLECALCIFEROL 1,000 UNIT TABLET PO SCH (09:03)
[2021-03-17] MEDS: FLUCONAZOLE INJ 200 MG/100 ML PREMIX IV SCH (09:04)
[2021-03-17] MEDS: ENOXAPARIN 80 MG/0.8 ML SYRINGE SUBCUT SCH ×2 (09:23→21:38)
[2021-03-17] MEDS: methylPREDNISolone SOD SUC 40 MG/1 ML VIAL IV SCH ×2 (09:31→21:39)
[2021-03-17] MEDS: DORNASE ALFA 2.5 MG/2.5 ML VIAL RESP TX SCH (09:35)
[2021-03-17] MEDS: fentaNYL INJ 5,000 MCG in SODIUM CHLORIDE 0.9% 150 ML IV PRN (11:31)
[2021-03-17] MEDS: PIPERACILLIN/TAZOBACTAM 3,375 MG in SODIUM CHLORIDE 0.9% 100 ML IV SCH ×2 (12:39→21:40)
[2021-03-17] MEDS: LEVOFLOXACIN INJ 750 MG/150 ML PREMIX IV SCH (17:08)
[2021-03-17] MEDS: MELATONIN 3 MG TABLET PO PRN (20:38)
[2021-03-18] MEDS: MIDAZOLAM 100 MG in SODIUM CHLORIDE 0.9% 80 ML IV PRN ×4 (01:30→20:55)
[2021-03-18] MEDS: fentaNYL INJ 5,000 MCG in SODIUM CHLORIDE 0.9% 150 ML IV PRN ×2 (01:35→17:55)
[2021-03-18] MEDS: ROCURONIUM 1,000 MG in SODIUM CHLORIDE 0.9% 175 ML IV PRN ×2 (03:35→19:15)
[2021-03-18] MEDS: ALBUTEROL INHALER 18 GM INH SCH ×6 (04:15→22:11)
[2021-03-18 04:24] LABS: Basophils % 0.1 % (0.0-0.8); Eosinophils % 0.1 % (0.00-10.9); Hemoglobin 8.9 GM/DL (14.0-18.0); Immature Granulocytes % 1.3 %; Immature Granulocytes Absolute 0.17 #; Lymphocytes # 0.5 10*3/uL (1.4-4.0); Lymphocytes % 3.5 % (21.2-54.2); Mean Corpuscular HGB Conc 29.7 GM/DL (32-36); Mean Corpuscular Volume 91.5 FL (87-102); Mean Platelet Volume 10.6 FL (9.6-12.0); Monocytes % 7.9 % (1.7-12.7); Neutrophils % 87.1 % (38.7-73.9); Platelet Count 354 T/CUMM (130-400); Red Blood Count 3.28 MC/CUMM (3.8-5.5); Red Cell Distribution Width 13.7 % (9.3-17.3)
[2021-03-18 04:26] LABS: ABG Base Excess 7.2 MMOL/L (-2.5-2.5); ABG HCO3 34.8 MMOL/L (20-26); ABG Oxygen Saturation 98.7 % (95-100); ABG PCO2 67.6 MM HG (35-48); ABG PH 7.329 (7.35-7.45); ABG PO2 157.9 MM HG (80-95); ABG TCO2 36.8 MMOL/L (23-27)
[2021-03-18] MEDS: PIPERACILLIN/TAZOBACTAM 3,375 MG in SODIUM CHLORIDE 0.9% 100 ML IV SCH ×3 (04:34→21:04)
[2021-03-18 04:40] LABS: Calcium 8.7 MG/DL (8.5-10.1); Potassium 4.7 MMOL/L (3.5-5.1)
[2021-03-18 04:45] LABS: Eosinophils 1 % (0-10); Hypochromasia 1+; Lymphocytes 3 % (20-55); Microcytosis 1+; Platelet Estimate Normal; Segmented Neutrophils 89 % (50-85); Total Cells Counted 100
[2021-03-18] MEDS: INSULIN LISPRO 100 UNIT/ML SUBCUT SCH ×3 (06:28→17:59)
[2021-03-18] MEDS: DORNASE ALFA 2.5 MG/2.5 ML VIAL RESP TX SCH ×3 (07:02→19:00)
[2021-03-18] MEDS: INSULIN GLARGINE 100 UNIT/ML SUBCUT SCH (08:35)
[2021-03-18] MEDS: ASCORBIC ACID 500 MG TABLET PO SCH ×2 (08:36→21:04)
[2021-03-18] MEDS: FAMOTIDINE 20 MG TABLET PO SCH ×2 (08:36→21:04)
[2021-03-18] MEDS: CHOLECALCIFEROL 1,000 UNIT TABLET PO SCH (08:36)
[2021-03-18] MEDS: ZINC GLUCONATE 50 MG TABLET PO SCH (08:36)
[2021-03-18] MEDS: ACETAMINOPHEN 325 MG TABLET PO PRN ×2 (08:37→17:59)
[2021-03-18] MEDS: FLUCONAZOLE INJ 200 MG/100 ML PREMIX IV SCH (08:37)
[2021-03-18] MEDS: SODIUM POLYSTYRENE SULFATE 15 GM/60 ML BOTTLE PO SCH ×2 (08:38)
[2021-03-18] MEDS: methylPREDNISolone SOD SUC 40 MG/1 ML VIAL IV SCH ×2 (10:01→22:06)
[2021-03-18] MEDS: ENOXAPARIN 80 MG/0.8 ML SYRINGE SUBCUT SCH ×2 (10:01→21:05)
[2021-03-18] MEDS: LEVOFLOXACIN INJ 750 MG/150 ML PREMIX IV SCH (16:21)
[2021-03-18] MEDS: MELATONIN 3 MG TABLET PO PRN (21:04)
[2021-03-19] MEDS: INSULIN LISPRO 100 UNIT/ML SUBCUT SCH ×4 (00:44→18:03)
[2021-03-19] MEDS: ALBUTEROL INHALER 18 GM INH SCH ×4 (02:09→23:57)
[2021-03-19] MEDS: MIDAZOLAM 100 MG in SODIUM CHLORIDE 0.9% 80 ML IV PRN ×4 (03:17→23:32)
[2021-03-19 04:50] LABS: ABG Base Excess 8.3 MMOL/L (-2.5-2.5); ABG HCO3 32.1 MMOL/L (20-26); ABG Oxygen Saturation 98.7 % (95-100); ABG PH 7.311 (7.35-7.45); ABG TCO2 34.1 MMOL/L (23-27)
[2021-03-19 04:51] LABS: ABG PCO2 72.8 MM HG (35-48); Basophils % 0.1 % (0.0-0.8); Eosinophils % 0.1 % (0.00-10.9); Hematocrit 30.3 VOL% (42.0-52.0); Hemoglobin 8.9 GM/DL (14.0-18.0); Immature Granulocytes % 0.9 %; Immature Granulocytes Absolute 0.12 #; Lymphocytes # 0.4 10*3/uL (1.4-4.0); Lymphocytes % 3.1 % (21.2-54.2); Mean Corpuscular HGB Conc 29.4 GM/DL (32-36); Mean Corpuscular Volume 92.4 FL (87-102); Mean Platelet Volume 10.4 FL (9.6-12.0); Monocytes % 5.7 % (1.7-12.7); Neutrophils % 90.1 % (38.7-73.9); Platelet Count 341 T/CUMM (130-400); Red Blood Count 3.28 MC/CUMM (3.8-5.5); Red Cell Distribution Width 13.6 % (9.3-17.3); White Blood Count 12.7 T/CUMM (4-12)
[2021-03-19] MEDS: PIPERACILLIN/TAZOBACTAM 3,375 MG in SODIUM CHLORIDE 0.9% 100 ML IV SCH ×3 (04:52→21:38)
[2021-03-19 05:11] LABS: Calcium 8.6 MG/DL (8.5-10.1); Potassium 4.4 MMOL/L (3.5-5.1)
[2021-03-19 05:22] LABS: Eosinophils 2 % (0-10); Hypochromasia Slight; Platelet Estimate Normal; Segmented Neutrophils 94 % (50-85); Total Cells Counted 100
[2021-03-19] MEDS: DORNASE ALFA 2.5 MG/2.5 ML VIAL RESP TX SCH ×2 (07:49→18:19)
[2021-03-19] MEDS: methylPREDNISolone SOD SUC 40 MG/1 ML VIAL IV SCH ×2 (09:58→21:36)
[2021-03-19] MEDS: INSULIN GLARGINE 100 UNIT/ML SUBCUT SCH (09:59)
[2021-03-19] MEDS: FAMOTIDINE 20 MG TABLET PO SCH ×2 (09:59→21:37)
[2021-03-19] MEDS: FLUCONAZOLE INJ 200 MG/100 ML PREMIX IV SCH (09:59)
[2021-03-19] MEDS: CHOLECALCIFEROL 1,000 UNIT TABLET PO SCH (10:00)
[2021-03-19] MEDS: ENOXAPARIN 80 MG/0.8 ML SYRINGE SUBCUT SCH ×2 (10:00→21:37)
[2021-03-19] MEDS: ASCORBIC ACID 500 MG TABLET PO SCH ×2 (10:01→21:37)
[2021-03-19] MEDS: ZINC GLUCONATE 50 MG TABLET PO SCH (10:01)
[2021-03-19] MEDS: fentaNYL INJ 5,000 MCG in SODIUM CHLORIDE 0.9% 150 ML IV PRN (10:09)
[2021-03-19] MEDS: ROCURONIUM 1,000 MG in SODIUM CHLORIDE 0.9% 175 ML IV PRN (11:49)
[2021-03-19] MEDS: LEVOFLOXACIN INJ 750 MG/150 ML PREMIX IV SCH (16:00)
[2021-03-19] MEDS: MELATONIN 3 MG TABLET PO PRN (21:38)
[2021-03-20] MEDS: INSULIN LISPRO 100 UNIT/ML SUBCUT SCH ×5 (00:34→23:54)
[2021-03-20] MEDS: fentaNYL INJ 5,000 MCG in SODIUM CHLORIDE 0.9% 150 ML IV PRN ×2 (01:43→17:46)
[2021-03-20] MEDS: ALBUTEROL INHALER 18 GM INH SCH ×7 (03:13→18:08)
[2021-03-20 04:42] LABS: ABG Base Excess 7.9 MMOL/L (-2.5-2.5); ABG HCO3 35.5 MMOL/L (20-26); ABG Oxygen Saturation 90.6 % (95-100); ABG PH 7.329 (7.35-7.45); ABG PO2 62.8 MM HG (80-95); ABG TCO2 37.7 MMOL/L (23-27)
[2021-03-20 04:44] LABS: ABG PCO2 69.1 MM HG (35-48)
[2021-03-20 04:57] LABS: Basophils % 0.1 % (0.0-0.8); Hematocrit 30.9 VOL% (42.0-52.0); Immature Granulocytes Absolute 0.12 #; Lymphocytes # 0.5 10*3/uL (1.4-4.0); Lymphocytes % 4.1 % (21.2-54.2); Mean Corpuscular HGB Conc 29.1 GM/DL (32-36); Mean Corpuscular Volume 92.8 FL (87-102); Mean Platelet Volume 10.6 FL (9.6-12.0); Monocytes % 4.5 % (1.7-12.7); Neutrophils % 90.3 % (38.7-73.9); Platelet Count 344 T/CUMM (130-400); Red Blood Count 3.33 MC/CUMM (3.8-5.5); Red Cell Distribution Width 13.5 % (9.3-17.3); White Blood Count 11.8 T/CUMM (4-12)
[2021-03-20 05:18] LABS: Osmolality,Calculated 303.7 MOS/KG (273-304); Potassium 3.9 MMOL/L (3.5-5.1)
[2021-03-20] MEDS: PIPERACILLIN/TAZOBACTAM 3,375 MG in SODIUM CHLORIDE 0.9% 100 ML IV SCH ×3 (05:18→20:23)
[2021-03-20 05:38] LABS: Eosinophils 1 % (0-10); Hypochromasia 1+; Lymphocytes 4 % (20-55); Microcytosis 1+; Platelet Estimate Normal; Segmented Neutrophils 95 % (50-85); Total Cells Counted 100
[2021-03-20] MEDS: MIDAZOLAM 100 MG in SODIUM CHLORIDE 0.9% 80 ML IV PRN ×3 (06:00→19:15)
[2021-03-20] MEDS: ROCURONIUM 1,000 MG in SODIUM CHLORIDE 0.9% 175 ML IV PRN (06:40)
[2021-03-20] MEDS: CHOLECALCIFEROL 1,000 UNIT TABLET PO SCH (09:34)
[2021-03-20] MEDS: ZINC GLUCONATE 50 MG TABLET PO SCH (09:34)
[2021-03-20] MEDS: FAMOTIDINE 20 MG TABLET PO SCH ×2 (09:34→20:22)
[2021-03-20] MEDS: ASCORBIC ACID 500 MG TABLET PO SCH ×2 (09:35→20:22)
[2021-03-20] MEDS: methylPREDNISolone SOD SUC 40 MG/1 ML VIAL IV SCH ×2 (09:35→21:37)
[2021-03-20] MEDS: INSULIN GLARGINE 100 UNIT/ML SUBCUT SCH (09:36)
[2021-03-20] MEDS: ENOXAPARIN 80 MG/0.8 ML SYRINGE SUBCUT SCH ×2 (09:36→21:36)
[2021-03-20] MEDS: FLUCONAZOLE INJ 200 MG/100 ML PREMIX IV SCH (09:37)
[2021-03-20] MEDS: ALBUMIN 25% 12.5 GM/50 ML VIAL IV SCH ×2 (10:23→18:08)
[2021-03-20] MEDS: FUROSEMIDE 40 MG/4 ML VIAL IV SCH ×2 (10:23→20:17)
[2021-03-20] MEDS ORDERED: DEXTROSE 50% 25 GM/50 ML VIAL IV PRN (11:47)
[2021-03-20] MEDS: LEVOFLOXACIN INJ 750 MG/150 ML PREMIX IV SCH (16:29)
[2021-03-20] MEDS ORDERED: FUROSEMIDE 40 MG/4 ML VIAL IV SCH (23:00)
[2021-03-21] MEDS: ALBUTEROL INHALER 18 GM INH SCH ×5 (00:18→16:46)
[2021-03-21] MEDS: MIDAZOLAM 100 MG in SODIUM CHLORIDE 0.9% 80 ML IV PRN ×4 (01:06→21:21)
[2021-03-21] MEDS: ALBUMIN 25% 12.5 GM/50 ML VIAL IV SCH ×3 (02:18→17:31)
[2021-03-21 03:59] LABS: ABG Base Excess 11.6 MMOL/L (-2.5-2.5); ABG HCO3 35.4 MMOL/L (20-26); ABG Oxygen Saturation 97.6 % (95-100); ABG PH 7.342 (7.35-7.45)
[2021-03-21] MEDS: PIPERACILLIN/TAZOBACTAM 3,375 MG in SODIUM CHLORIDE 0.9% 100 ML IV SCH ×2 (04:05→12:27)
[2021-03-21 04:17] LABS: ABG PCO2 73.9 MM HG (35-48)
[2021-03-21] MEDS: ROCURONIUM 1,000 MG in SODIUM CHLORIDE 0.9% 175 ML IV PRN (04:20)
[2021-03-21 04:23] LABS: Albumin 2.2 G/DL (3.4-5.0); Bilirubin,Total 0.4 MG/DL (0.20-1.00); Calcium 8.9 MG/DL (8.5-10.1); Total Protein 6.1 G/DL (6.4-8.2)
[2021-03-21 04:24] LABS: Osmolality,Calculated 308.4 MOS/KG (273-304); Potassium 3.7 MMOL/L (3.5-5.1)
[2021-03-21 04:53] LABS: Basophils % 0.1 % (0.0-0.8); Eosinophils % 0.2 % (0.00-10.9); Hematocrit 30.9 VOL% (42.0-52.0); Immature Granulocytes % 1.1 %; Immature Granulocytes Absolute 0.12 #; Lymphocytes # 0.5 10*3/uL (1.4-4.0); Lymphocytes % 4.7 % (21.2-54.2); Mean Corpuscular HGB Conc 29.1 GM/DL (32-36); Mean Corpuscular Volume 91.7 FL (87-102); Mean Platelet Volume 10.8 FL (9.6-12.0); Neutrophils % 89.9 % (38.7-73.9); Platelet Count 316 T/CUMM (130-400); Red Blood Count 3.37 MC/CUMM (3.8-5.5); Red Cell Distribution Width 13.6 % (9.3-17.3); White Blood Count 11.2 T/CUMM (4-12)
[2021-03-21 05:34] LABS: Band Neutrophils 3 % (0-10); Eosinophils 1 % (0-10); Lymphocytes 7 % (20-55); Platelet Estimate Normal; Segmented Neutrophils 86 % (50-85); Total Cells Counted 100
[2021-03-21 05:35] LABS: Anisocytosis Slight; Basophilic Stippling Slight; Stomatocytes 1+
[2021-03-21] MEDS: INSULIN LISPRO 100 UNIT/ML SUBCUT SCH ×4 (06:15→23:32)
[2021-03-21 08:22] LABS: ABG Base Excess 12.6 MMOL/L (-2.5-2.5); ABG HCO3 36.3 MMOL/L (20-26); ABG Oxygen Saturation 96.4 % (95-100); ABG PCO2 68.6 MM HG (35-48); ABG PH 7.377 (7.35-7.45); ABG PO2 88.1 MM HG (80-95); ABG TCO2 37.2 MMOL/L (23-27)
[2021-03-21] MEDS: INSULIN GLARGINE 100 UNIT/ML SUBCUT SCH (08:25)
[2021-03-21] MEDS: FAMOTIDINE 20 MG TABLET PO SCH ×2 (08:25→20:11)
[2021-03-21] MEDS: CHOLECALCIFEROL 1,000 UNIT TABLET PO SCH (08:26)
[2021-03-21] MEDS: ASCORBIC ACID 500 MG TABLET PO SCH ×2 (08:26→20:11)
[2021-03-21] MEDS: ZINC GLUCONATE 50 MG TABLET PO SCH (08:26)
[2021-03-21] MEDS: FLUCONAZOLE INJ 200 MG/100 ML PREMIX IV SCH (09:29)
[2021-03-21] MEDS: methylPREDNISolone SOD SUC 40 MG/1 ML VIAL IV SCH ×2 (09:30→22:04)
[2021-03-21] MEDS: ENOXAPARIN 80 MG/0.8 ML SYRINGE SUBCUT SCH ×2 (09:30→21:24)
[2021-03-21] MEDS: fentaNYL INJ 5,000 MCG in SODIUM CHLORIDE 0.9% 150 ML IV PRN (09:30)
[2021-03-21] MEDS: FUROSEMIDE 40 MG/4 ML VIAL IV SCH ×2 (10:03→17:31)
[2021-03-21] MEDS: MEROPENEM 500 MG in SODIUM CHLORIDE 0.9% 100 ML IV SCH ×2 (13:38→20:11)
[2021-03-21] MEDS: ALBUTEROL/IPRATROPIUM 3 ML NEB RESP TX SCH (19:00)
[2021-03-22] MEDS: MEROPENEM 500 MG in SODIUM CHLORIDE 0.9% 100 ML IV SCH ×4 (01:05→19:40)
[2021-03-22] MEDS: ALBUMIN 25% 12.5 GM/50 ML VIAL IV SCH ×3 (01:06→17:40)
[2021-03-22] MEDS: ALBUTEROL/IPRATROPIUM 3 ML NEB RESP TX SCH ×4 (01:10→19:41)
[2021-03-22] MEDS: MIDAZOLAM 100 MG in SODIUM CHLORIDE 0.9% 80 ML IV PRN ×4 (03:46→22:36)
[2021-03-22 04:20] LABS: ABG HCO3 37.9 MMOL/L (20-26); ABG Oxygen Saturation 96.5 % (95-100); ABG PH 7.356 (7.35-7.45); ABG PO2 94.4 MM HG (80-95); ABG TCO2 39.3 MMOL/L (23-27)
[2021-03-22 04:22] LABS: ABG PCO2 76.2 MM HG (35-48)
[2021-03-22 04:25] LABS: Basophils % 0.1 % (0.0-0.8); Eosinophils % 0.1 % (0.00-10.9); Hematocrit 31.4 VOL% (42.0-52.0); Hemoglobin 9.4 GM/DL (14.0-18.0); Immature Granulocytes % 0.9 %; Immature Granulocytes Absolute 0.12 #; Lymphocytes # 0.5 10*3/uL (1.4-4.0); Lymphocytes % 3.8 % (21.2-54.2); Mean Corpuscular HGB Conc 29.9 GM/DL (32-36); Mean Corpuscular Volume 91.5 FL (87-102); Mean Platelet Volume 10.5 FL (9.6-12.0); Monocytes % 4.2 % (1.7-12.7); Neutrophils % 90.9 % (38.7-73.9); Platelet Count 306 T/CUMM (130-400); Red Blood Count 3.43 MC/CUMM (3.8-5.5); Red Cell Distribution Width 13.9 % (9.3-17.3); White Blood Count 14.1 T/CUMM (4-12)
[2021-03-22 04:44] LABS: Hypochromasia 1+; Lymphocytes 3 % (20-55); Platelet Estimate Adequate; Segmented Neutrophils 93 % (50-85); Total Cells Counted 100
[2021-03-22 04:45] LABS: Microcytosis 1+
[2021-03-22 05:01] LABS: Albumin 2.7 G/DL (3.4-5.0); Bilirubin,Total 1.2 MG/DL (0.20-1.00); Calcium 8.9 MG/DL (8.5-10.1); Osmolality,Calculated 306.7 MOS/KG (273-304); Potassium 3.4 MMOL/L (3.5-5.1); Total Protein 6.1 G/DL (6.4-8.2)
[2021-03-22] MEDS: INSULIN LISPRO 100 UNIT/ML SUBCUT SCH ×3 (06:28→17:41)
[2021-03-22] MEDS: INSULIN GLARGINE 100 UNIT/ML SUBCUT SCH (09:12)
[2021-03-22] MEDS: FUROSEMIDE 40 MG/4 ML VIAL IV SCH ×2 (09:12→15:44)
[2021-03-22] MEDS: ZINC GLUCONATE 50 MG TABLET PO SCH (09:13)
[2021-03-22] MEDS: ASCORBIC ACID 500 MG TABLET PO SCH ×2 (09:13→22:14)
[2021-03-22] MEDS: FAMOTIDINE 20 MG TABLET PO SCH ×2 (09:13→22:14)
[2021-03-22] MEDS: CHOLECALCIFEROL 1,000 UNIT TABLET PO SCH (09:13)
[2021-03-22] MEDS: ENOXAPARIN 80 MG/0.8 ML SYRINGE SUBCUT SCH ×2 (09:13→22:14)
[2021-03-22] MEDS: FLUCONAZOLE INJ 200 MG/100 ML PREMIX IV SCH (09:14)
[2021-03-22] MEDS: POTASSIUM BICARB EFFERVESCENT 20 MEQ TAB.EFF PER TUBE PRN ×2 (09:30→14:23)
[2021-03-22] MEDS: methylPREDNISolone SOD SUC 40 MG/1 ML VIAL IV SCH ×2 (11:11→22:15)
[2021-03-22] MEDS: fentaNYL INJ 5,000 MCG in SODIUM CHLORIDE 0.9% 150 ML IV PRN (16:26)
[2021-03-22 23:37] LABS: Fungitell Quantitative Value < 31 pg/mL (<60 pg/mL)
[2021-03-23] MEDS: INSULIN LISPRO 100 UNIT/ML SUBCUT SCH ×4 (00:26→18:12)
[2021-03-23] MEDS: ALBUTEROL/IPRATROPIUM 3 ML NEB RESP TX SCH ×5 (02:00→20:25)
[2021-03-23] MEDS: ALBUMIN 25% 12.5 GM/50 ML VIAL IV SCH (02:10)
[2021-03-23] MEDS: MEROPENEM 500 MG in SODIUM CHLORIDE 0.9% 100 ML IV SCH ×4 (02:10→20:03)
[2021-03-23 04:23] LABS: ABG Base Excess 18.9 MMOL/L (-2.5-2.5); ABG HCO3 45.5 MMOL/L (20-26); ABG Oxygen Saturation 98.2 % (95-100); ABG PCO2 67.3 MM HG (35-48); ABG PH 7.448 (7.35-7.45); ABG PO2 127.9 MM HG (80-95); ABG TCO2 47.6 MMOL/L (23-27)
[2021-03-23 04:32] LABS: Basophils % 0.1 % (0.0-0.8); Hematocrit 29.3 VOL% (42.0-52.0); Hemoglobin 8.5 GM/DL (14.0-18.0); Immature Granulocytes Absolute 0.14 #; Lymphocytes # 0.6 10*3/uL (1.4-4.0); Lymphocytes % 4.1 % (21.2-54.2); Mean Corpuscular Volume 92.7 FL (87-102); Mean Platelet Volume 10.8 FL (9.6-12.0); Monocytes % 4.1 % (1.7-12.7); Neutrophils % 90.7 % (38.7-73.9); Platelet Count 276 T/CUMM (130-400); Red Blood Count 3.16 MC/CUMM (3.8-5.5); Red Cell Distribution Width 14.5 % (9.3-17.3); White Blood Count 14.6 T/CUMM (4-12)
[2021-03-23 04:53] LABS: Hypochromasia 1+; Lymphocytes 3 % (20-55); Microcytosis 1+; Platelet Estimate Adequate; Segmented Neutrophils 92 % (50-85); Total Cells Counted 100
[2021-03-23] MEDS: MIDAZOLAM 100 MG in SODIUM CHLORIDE 0.9% 80 ML IV PRN ×3 (05:30→19:08)
[2021-03-23 06:03] LABS: Osmolality,Calculated 314.1 MOS/KG (273-304); Potassium 3.6 MMOL/L (3.5-5.1)
[2021-03-23] MEDS: FUROSEMIDE 40 MG/4 ML VIAL IV SCH (08:29)
[2021-03-23] MEDS: ASCORBIC ACID 500 MG TABLET PO SCH ×2 (08:30→20:04)
[2021-03-23] MEDS: FAMOTIDINE 20 MG TABLET PO SCH ×2 (08:30→20:04)
[2021-03-23] MEDS: CHOLECALCIFEROL 1,000 UNIT TABLET PO SCH (08:30)
[2021-03-23] MEDS: ZINC GLUCONATE 50 MG TABLET PO SCH (08:30)
[2021-03-23] MEDS: FLUCONAZOLE INJ 200 MG/100 ML PREMIX IV SCH (08:31)
[2021-03-23] MEDS: INSULIN GLARGINE 100 UNIT/ML SUBCUT SCH (08:32)
[2021-03-23] MEDS: ENOXAPARIN 80 MG/0.8 ML SYRINGE SUBCUT SCH ×2 (09:00→22:20)
[2021-03-23] MEDS: methylPREDNISolone SOD SUC 40 MG/1 ML VIAL IV SCH ×2 (09:45→22:23)
[2021-03-23] MEDS ORDERED: MORPHINE 2 MG/1 ML SYRINGE IV PRN (10:52)
[2021-03-23] MEDS ORDERED: SUCCINYLCHOLINE 200 MG/10 ML VIAL ONE (11:25)
[2021-03-23] MEDS ORDERED: SUCCINYLCHOLINE 200 MG/10 ML VIAL IV ONE (11:39)
[2021-03-23] MEDS ORDERED: PHENYLEPHRINE DRIP 0 MG/0 ML PREMIX IV ONE (13:56)
[2021-03-23] MEDS: PHENYLEPHRINE INJ 160 MG in SODIUM CHLORIDE 0.9% 234 ML IV PRN (20:58)
[2021-03-23] MEDS: fentaNYL INJ 5,000 MCG in SODIUM CHLORIDE 0.9% 150 ML IV PRN (22:20)
[2021-03-24] MEDS: ALBUTEROL/IPRATROPIUM 3 ML NEB RESP TX SCH ×4 (01:08→19:00)
[2021-03-24 02:07] LABS: ABG Base Excess 13.3 MMOL/L (-2.5-2.5); ABG Oxygen Saturation 96.6 % (95-100); ABG PCO2 67.1 MM HG (35-48); ABG PO2 90.3 MM HG (80-95); ABG TCO2 37.7 MMOL/L (23-27)
[2021-03-24] MEDS: MEROPENEM 500 MG in SODIUM CHLORIDE 0.9% 100 ML IV SCH ×4 (02:30→21:25)
[2021-03-24 02:33] LABS: Calcium 9.1 MG/DL (8.5-10.1); Osmolality,Calculated 321.6 MOS/KG (273-304); Potassium 3.7 MMOL/L (3.5-5.1)
[2021-03-24] MEDS: INSULIN LISPRO 100 UNIT/ML SUBCUT SCH ×4 (02:34→17:45)
[2021-03-24 02:37] LABS: Basophils % 0.1 % (0.0-0.8); Eosinophils # 0.1 10*3/uL (0.0-0.87); Eosinophils % 0.3 % (0.00-10.9); Hematocrit 29.9 VOL% (42.0-52.0); Hemoglobin 8.4 GM/DL (14.0-18.0); Immature Granulocytes % 1.4 %; Immature Granulocytes Absolute 0.34 #; Lymphocytes % 8.6 % (21.2-54.2); Mean Corpuscular HGB Conc 28.1 GM/DL (32-36); Mean Corpuscular Volume 94.3 FL (87-102); Mean Platelet Volume 11.2 FL (9.6-12.0); Monocytes % 5.1 % (1.7-12.7); NRBC # 0.02 10*3/uL; Neutrophils % 84.5 % (38.7-73.9); Platelet Count 359 T/CUMM (130-400); Red Blood Count 3.17 MC/CUMM (3.8-5.5); Red Cell Distribution Width 14.8 % (9.3-17.3); White Blood Count 23.5 T/CUMM (4-12)
[2021-03-24] MEDS: MIDAZOLAM 100 MG in SODIUM CHLORIDE 0.9% 80 ML IV PRN ×3 (03:17→19:10)
[2021-03-24 04:04] LABS: Lymphocytes 5 % (20-55); Segmented Neutrophils 93 % (50-85); Total Cells Counted 100
[2021-03-24 04:05] LABS: Platelet Estimate Increased; Polychromasia Slight; Stomatocytes 1+
[2021-03-24] MEDS ORDERED: FUROSEMIDE 40 MG/4 ML VIAL IV SCH (09:00)
[2021-03-24] MEDS: INSULIN GLARGINE 100 UNIT/ML SUBCUT SCH (09:15)
[2021-03-24] MEDS: FAMOTIDINE 20 MG TABLET PO SCH (09:18)
[2021-03-24] MEDS: ZINC GLUCONATE 50 MG TABLET PO SCH (09:19)
[2021-03-24] MEDS: ASCORBIC ACID 500 MG TABLET PO SCH ×2 (09:19→21:28)
[2021-03-24] MEDS: CHOLECALCIFEROL 1,000 UNIT TABLET PO SCH (09:19)
[2021-03-24] MEDS: PANTOPRAZOLE 40 MG VIAL IV SCH ×2 (10:39→21:25)
[2021-03-24] MEDS: methylPREDNISolone SOD SUC 40 MG/1 ML VIAL IV SCH ×2 (10:43→21:42)
[2021-03-24] MEDS: FLUCONAZOLE INJ 200 MG/100 ML PREMIX IV SCH (10:45)
[2021-03-24 13:14] LABS: Hematocrit 25.6 VOL% (42.0-52.0); Hemoglobin 7.4 GM/DL (14.0-18.0)
[2021-03-24 16:06] LABS: Herpesvirus 7 IgM Ab by IFA <1:20
[2021-03-24] MEDS: ACETAMINOPHEN 325 MG TABLET PO PRN (21:28)
[2021-03-25] MEDS: INSULIN LISPRO 100 UNIT/ML SUBCUT SCH ×4 (00:44→18:11)
[2021-03-25] MEDS: ALBUTEROL/IPRATROPIUM 3 ML NEB RESP TX SCH ×4 (02:02→19:00)
[2021-03-25] MEDS: MIDAZOLAM 100 MG in SODIUM CHLORIDE 0.9% 80 ML IV PRN ×3 (03:17→19:40)
[2021-03-25] MEDS: MEROPENEM 500 MG in SODIUM CHLORIDE 0.9% 100 ML IV SCH ×4 (03:40→21:59)
[2021-03-25 03:42] LABS: ABG Base Excess 12.2 MMOL/L (-2.5-2.5); ABG HCO3 35.9 MMOL/L (20-26); ABG Oxygen Saturation 97.2 % (95-100); ABG PCO2 58.4 MM HG (35-48); ABG PH 7.424 (7.35-7.45); ABG PO2 90.9 MM HG (80-95); ABG TCO2 36.3 MMOL/L (23-27)
[2021-03-25 03:49] LABS: Basophils % 0.1 % (0.0-0.8); Hematocrit 23.2 VOL% (42.0-52.0); Hemoglobin 6.7 GM/DL (14.0-18.0); Immature Granulocytes Absolute 0.25 #; Lymphocytes # 1.4 10*3/uL (1.4-4.0); Lymphocytes % 5.7 % (21.2-54.2); Mean Corpuscular HGB Conc 28.9 GM/DL (32-36); Mean Corpuscular Volume 93.9 FL (87-102); Mean Platelet Volume 11.3 FL (9.6-12.0); Monocytes % 4.4 % (1.7-12.7); NRBC # 0.04 10*3/uL; Neutrophils % 88.8 % (38.7-73.9); Platelet Count 213 T/CUMM (130-400); Red Blood Count 2.47 MC/CUMM (3.8-5.5); Red Cell Distribution Width 15.2 % (9.3-17.3); White Blood Count 24.1 T/CUMM (4-12)
[2021-03-25 04:11] LABS: Hypochromasia 1+; Lymphocytes 7 % (20-55); Platelet Estimate Normal; Segmented Neutrophils 90 % (50-85)
[2021-03-25 04:12] LABS: Total Cells Counted 100
[2021-03-25 04:28] LABS: Calcium 8.8 MG/DL (8.5-10.1); Potassium 3.7 MMOL/L (3.5-5.1)
[2021-03-25] MEDS: fentaNYL INJ 5,000 MCG in SODIUM CHLORIDE 0.9% 150 ML IV PRN (05:49)
[2021-03-25] MEDS: POTASSIUM BICARB EFFERVESCENT 20 MEQ TAB.EFF PER TUBE PRN (09:18)
[2021-03-25] MEDS: ZINC GLUCONATE 50 MG TABLET PO SCH (09:19)
[2021-03-25] MEDS: INSULIN GLARGINE 100 UNIT/ML SUBCUT SCH (09:19)
[2021-03-25] MEDS: CHOLECALCIFEROL 1,000 UNIT TABLET PO SCH (09:19)
[2021-03-25] MEDS: ASCORBIC ACID 500 MG TABLET PO SCH ×2 (09:19→22:00)
[2021-03-25] MEDS: FLUCONAZOLE INJ 200 MG/100 ML PREMIX IV SCH (09:21)
[2021-03-25] MEDS: PANTOPRAZOLE 40 MG VIAL IV SCH ×2 (09:25→22:00)
[2021-03-25] MEDS: methylPREDNISolone SOD SUC 40 MG/1 ML VIAL IV SCH ×2 (09:45→22:16)
[2021-03-25] MEDS ORDERED: SODIUM CHLORIDE 0.9% 1,000 ML IV PRN (10:15)
[2021-03-25] MEDS ORDERED: DEXTROSE 5% 1,000 ML IV SCH (10:30)
[2021-03-25] MEDS ORDERED: DEXTROSE 5% 500 ML IV SCH (11:00)
[2021-03-25] MEDS: PHENYLEPHRINE INJ 160 MG in SODIUM CHLORIDE 0.9% 234 ML IV PRN (23:42)
[2021-03-26] MEDS: INSULIN LISPRO 100 UNIT/ML SUBCUT SCH ×4 (00:06→18:17)
[2021-03-26] MEDS: ALBUTEROL/IPRATROPIUM 3 ML NEB RESP TX SCH ×4 (00:58→19:00)
[2021-03-26] MEDS: MIDAZOLAM 100 MG in SODIUM CHLORIDE 0.9% 80 ML IV PRN ×2 (03:11→11:47)
[2021-03-26] MEDS: MEROPENEM 500 MG in SODIUM CHLORIDE 0.9% 100 ML IV SCH ×4 (04:04→21:01)
[2021-03-26 04:26] LABS: ABG Base Excess 12.7 MMOL/L (-2.5-2.5); ABG HCO3 39.3 MMOL/L (20-26); ABG Oxygen Saturation 96.1 % (95-100); ABG PCO2 67.6 MM HG (35-48); ABG PH 7.382 (7.35-7.45); ABG PO2 87.3 MM HG (80-95); ABG TCO2 41.3 MMOL/L (23-27)
[2021-03-26 05:08] LABS: Basophils % 0.1 % (0.0-0.8); Hematocrit 22.3 VOL% (42.0-52.0); Hemoglobin 6.5 GM/DL (14.0-18.0); Immature Granulocytes % 1.3 %; Lymphocytes # 1.2 10*3/uL (1.4-4.0); Lymphocytes % 5.3 % (21.2-54.2); Mean Corpuscular HGB Conc 29.1 GM/DL (32-36); Mean Corpuscular Volume 94.5 FL (87-102); Mean Platelet Volume 11.8 FL (9.6-12.0); Monocytes % 4.1 % (1.7-12.7); Neutrophils % 89.2 % (38.7-73.9); Platelet Count 180 T/CUMM (130-400); Red Blood Count 2.36 MC/CUMM (3.8-5.5); White Blood Count 23.2 T/CUMM (4-12)
[2021-03-26 05:27] LABS: Calcium 8.8 MG/DL (8.5-10.1); Osmolality,Calculated 322.1 MOS/KG (273-304)
[2021-03-26 05:36] LABS: Albumin 2.3 G/DL (3.4-5.0); Bilirubin,Direct 0.12 MG/DL (0.0-0.20); Bilirubin,Indirect 1.3 MG/DL (0.0-1.0); Bilirubin,Total 1.4 MG/DL (0.20-1.00); Total Protein 5.2 G/DL (6.4-8.2)
[2021-03-26] MEDS ORDERED: SODIUM CHLORIDE 0.9% 1,000 ML IV PRN (06:03)
[2021-03-26 06:12] LABS: Anisocytosis 2+; Band Neutrophils 8 % (0-10); Basophilic Stippling Slight; Lymphocytes 5 % (20-55); Myelocytes 1 %; Nucleated Red Blood Cells 1 (0-5); Platelet Estimate Normal; Segmented Neutrophils 85 % (50-85); Total Cells Counted 100
[2021-03-26 06:13] LABS: Stomatocytes Few
[2021-03-26] MEDS: INSULIN GLARGINE 100 UNIT/ML SUBCUT SCH (10:05)
[2021-03-26] MEDS: ASCORBIC ACID 500 MG TABLET PO SCH ×2 (10:05→21:02)
[2021-03-26] MEDS: CHOLECALCIFEROL 1,000 UNIT TABLET PO SCH (10:06)
[2021-03-26] MEDS: ZINC GLUCONATE 50 MG TABLET PO SCH (10:06)
[2021-03-26] MEDS: PANTOPRAZOLE 40 MG VIAL IV SCH ×2 (10:07→21:07)
[2021-03-26] MEDS: methylPREDNISolone SOD SUC 40 MG/1 ML VIAL IV SCH (10:23)
[2021-03-26] MEDS ORDERED: INSULIN GLARGINE 100 UNIT/ML SUBCUT ONE (10:47)
[2021-03-26 12:39] LABS: Hematocrit 27.5 VOL% (42.0-52.0); Hemoglobin 8.3 GM/DL (14.0-18.0)
[2021-03-26] MEDS: fentaNYL INJ 5,000 MCG in SODIUM CHLORIDE 0.9% 150 ML IV PRN (15:05)
[2021-03-26 18:54] LABS: Hematocrit 26.9 VOL% (42.0-52.0)
[2021-03-27] MEDS: INSULIN LISPRO 100 UNIT/ML SUBCUT SCH ×4 (00:53→17:22)
[2021-03-27] MEDS: methylPREDNISolone SOD SUC 40 MG/1 ML VIAL IV SCH ×3 (01:09→22:09)
[2021-03-27 01:21] LABS: Hematocrit 27.5 VOL% (42.0-52.0); Hemoglobin 8.2 GM/DL (14.0-18.0)
[2021-03-27] MEDS: ALBUTEROL/IPRATROPIUM 3 ML NEB RESP TX SCH ×4 (02:05→19:53)
[2021-03-27] MEDS: MIDAZOLAM 100 MG in SODIUM CHLORIDE 0.9% 80 ML IV PRN ×3 (03:01→18:26)
[2021-03-27] MEDS: MEROPENEM 500 MG in SODIUM CHLORIDE 0.9% 100 ML IV SCH ×4 (03:55→21:00)
[2021-03-27 04:49] LABS: Basophils % 0.1 % (0.0-0.8); Eosinophils % 0.1 % (0.00-10.9); Hematocrit 27.1 VOL% (42.0-52.0); Hemoglobin 8.1 GM/DL (14.0-18.0); Immature Granulocytes % 1.3 %; Immature Granulocytes Absolute 0.25 #; Lymphocytes # 0.9 10*3/uL (1.4-4.0); Lymphocytes % 4.5 % (21.2-54.2); Mean Corpuscular HGB Conc 29.9 GM/DL (32-36); Mean Corpuscular Volume 95.1 FL (87-102); Mean Platelet Volume 12.1 FL (9.6-12.0); Monocytes % 4.3 % (1.7-12.7); NRBC # 0.09 10*3/uL; Neutrophils % 89.7 % (38.7-73.9); Platelet Count 157 T/CUMM (130-400); Red Blood Count 2.85 MC/CUMM (3.8-5.5); Red Cell Distribution Width 15.5 % (9.3-17.3); White Blood Count 19.5 T/CUMM (4-12)
[2021-03-27 05:27] LABS: Alanine Aminotransferase 22 U/L (16-61); Albumin 2.4 G/DL (3.4-5.0); Alkaline Phosphatase 39 U/L (45-117); Aspartate Amino Transferase 10 U/L (0-37); Bilirubin,Direct < 0.100 MG/DL (0.0-0.20); Bilirubin,Indirect 0.3 MG/DL (0.0-1.0); Blood Urea Nitrogen 46 MG/DL (7-18); Calcium 8.6 MG/DL (8.5-10.1); Carbon Dioxide 33 MMOL/L (21-32); Estimated Glom Filtration Rate 207 ML/MIN; Ferritin 408.3 ng/mL (26-388); Glucose 251 MG/DL (74-106); Osmolality,Calculated 313.3 MOS/KG (273-304); Potassium 4.1 MMOL/L (3.5-5.1); Sodium 148 MMOL/L (136-145); Total Protein 5.8 G/DL (6.4-8.2)
[2021-03-27] MEDS: INSULIN GLARGINE 100 UNIT/ML SUBCUT SCH (08:09)
[2021-03-27] MEDS: ASCORBIC ACID 500 MG TABLET PO SCH ×2 (08:10→21:00)
[2021-03-27] MEDS: PANTOPRAZOLE 40 MG VIAL IV SCH ×2 (08:10→21:03)
[2021-03-27] MEDS: ZINC GLUCONATE 50 MG TABLET PO SCH (08:10)
[2021-03-27] MEDS: CHOLECALCIFEROL 1,000 UNIT TABLET PO SCH (08:10)
[2021-03-27 08:38] LABS: ABG Base Excess 7.6 MMOL/L (-2.5-2.5); ABG HCO3 34.6 MMOL/L (20-26); ABG Oxygen Saturation 97.7 % (95-100); ABG PCO2 61.7 MM HG (35-48); ABG PH 7.367 (7.35-7.45); ABG PO2 110.6 MM HG (80-95); ABG TCO2 36.5 MMOL/L (23-27)
[2021-03-27 09:42] LABS: Hypochromasia 1+; Lymphocytes 5 % (20-55); Microcytosis 1+; Platelet Estimate Adequate; Segmented Neutrophils 94 % (50-85); Total Cells Counted 100
[2021-03-27] MEDS: GENTAMICIN INJ 200 MG in SODIUM CHLORIDE 0.9% 100 ML IV SCH (14:01)
[2021-03-27] MEDS: PHENYLEPHRINE INJ 160 MG in SODIUM CHLORIDE 0.9% 234 ML IV PRN (23:18)
[2021-03-27] MEDS: fentaNYL INJ 5,000 MCG in SODIUM CHLORIDE 0.9% 150 ML IV PRN (23:40)
[2021-03-28] MEDS: INSULIN LISPRO 100 UNIT/ML SUBCUT SCH ×4 (01:07→17:20)
[2021-03-28] MEDS: ALBUTEROL/IPRATROPIUM 3 ML NEB RESP TX SCH ×4 (01:11→18:20)
[2021-03-28] MEDS: MIDAZOLAM 100 MG in SODIUM CHLORIDE 0.9% 80 ML IV PRN ×3 (02:23→17:57)
[2021-03-28] MEDS: GENTAMICIN INJ 200 MG in SODIUM CHLORIDE 0.9% 100 ML IV SCH ×2 (02:45→13:16)
[2021-03-28] MEDS: MEROPENEM 500 MG in SODIUM CHLORIDE 0.9% 100 ML IV SCH ×4 (03:30→21:29)
[2021-03-28 04:39] LABS: ABG Base Excess 5.9 MMOL/L (-2.5-2.5); ABG HCO3 32.7 MMOL/L (20-26); ABG Oxygen Saturation 96.6 % (95-100); ABG PCO2 61.8 MM HG (35-48); ABG PH 7.341 (7.35-7.45); ABG PO2 93.5 MM HG (80-95); ABG TCO2 34.6 MMOL/L (23-27)
[2021-03-28 04:44] LABS: Hematocrit 26.4 VOL% (42.0-52.0); Hemoglobin 7.9 GM/DL (14.0-18.0); Immature Granulocytes % 1.2 %; Immature Granulocytes Absolute 0.25 #; Lymphocytes # 0.9 10*3/uL (1.4-4.0); Lymphocytes % 4.5 % (21.2-54.2); Mean Corpuscular HGB Conc 29.9 GM/DL (32-36); Mean Corpuscular Volume 95.3 FL (87-102); Monocytes % 3.6 % (1.7-12.7); NRBC # 0.07 10*3/uL; Neutrophils % 90.7 % (38.7-73.9); Platelet Count 178 T/CUMM (130-400); Red Blood Count 2.77 MC/CUMM (3.8-5.5); White Blood Count 20.7 T/CUMM (4-12)
[2021-03-28 05:02] LABS: Albumin 2.4 G/DL (3.4-5.0); Bilirubin,Total 0.4 MG/DL (0.20-1.00); Calcium 8.7 MG/DL (8.5-10.1); Ferritin 376.5 ng/mL (26-388); Osmolality,Calculated 304.3 MOS/KG (273-304); Potassium 4.7 MMOL/L (3.5-5.1); Total Protein 5.8 G/DL (6.4-8.2)
[2021-03-28 05:08] LABS: Hypochromasia 1+; Lymphocytes 3 % (20-55); Microcytosis 1+; Nucleated Red Blood Cells 1 (0-5); Platelet Estimate Adequate; Segmented Neutrophils 94 % (50-85); Total Cells Counted 100
[2021-03-28] MEDS: PANTOPRAZOLE 40 MG VIAL IV SCH ×2 (08:11→21:34)
[2021-03-28] MEDS: INSULIN GLARGINE 100 UNIT/ML SUBCUT SCH (08:11)
[2021-03-28] MEDS: ASCORBIC ACID 500 MG TABLET PO SCH ×2 (08:12→21:29)
[2021-03-28] MEDS: ZINC GLUCONATE 50 MG TABLET PO SCH (08:12)
[2021-03-28] MEDS: CHOLECALCIFEROL 1,000 UNIT TABLET PO SCH (08:12)
[2021-03-28] MEDS: methylPREDNISolone SOD SUC 40 MG/1 ML VIAL IV SCH ×2 (09:46→21:33)
[2021-03-29] MEDS: INSULIN LISPRO 100 UNIT/ML SUBCUT SCH ×5 (00:35→23:37)
[2021-03-29] MEDS: ALBUTEROL/IPRATROPIUM 3 ML NEB RESP TX SCH ×4 (01:27→19:00)
[2021-03-29] MEDS: MIDAZOLAM 100 MG in SODIUM CHLORIDE 0.9% 80 ML IV PRN ×2 (02:31→13:09)
[2021-03-29] MEDS: GENTAMICIN INJ 200 MG in SODIUM CHLORIDE 0.9% 100 ML IV SCH ×2 (02:39→21:29)
[2021-03-29 04:31] LABS: ABG Base Excess 3.8 MMOL/L (-2.5-2.5); ABG HCO3 27.8 MMOL/L (20-26); ABG Oxygen Saturation 98.5 % (95-100); ABG PCO2 56.1 MM HG (35-48); ABG PH 7.343 (7.35-7.45); ABG TCO2 28.4 MMOL/L (23-27)
[2021-03-29 04:55] LABS: Basophils % 0.2 % (0.0-0.8); Eosinophils % 0.1 % (0.00-10.9); Hematocrit 27.6 VOL% (42.0-52.0); Hemoglobin 8.4 GM/DL (14.0-18.0); Immature Granulocytes % 2.1 %; Immature Granulocytes Absolute 0.41 #; Lymphocytes % 5.3 % (21.2-54.2); Mean Corpuscular HGB Conc 30.4 GM/DL (32-36); Mean Corpuscular Volume 93.6 FL (87-102); Mean Platelet Volume 12.2 FL (9.6-12.0); Monocytes % 4.3 % (1.7-12.7); NRBC # 0.06 10*3/uL; Platelet Count 204 T/CUMM (130-400); Red Blood Count 2.95 MC/CUMM (3.8-5.5); White Blood Count 19.3 T/CUMM (4-12)
[2021-03-29 05:01] LABS: Albumin 2.5 G/DL (3.4-5.0); Bilirubin,Total 0.5 MG/DL (0.20-1.00); Ferritin 401.6 ng/mL (26-388); Osmolality,Calculated 288.1 MOS/KG (273-304); Potassium 5.3 MMOL/L (3.5-5.1); Total Protein 5.9 G/DL (6.4-8.2)
[2021-03-29] MEDS: fentaNYL INJ 5,000 MCG in SODIUM CHLORIDE 0.9% 150 ML IV PRN (05:44)
[2021-03-29] MEDS ORDERED: INSULIN REGULAR 100 UNIT/ML IV ONE (08:32)
[2021-03-29] MEDS ORDERED: DEXTROSE 50% 25 GM/50 ML VIAL IV ONE (08:32)
[2021-03-29] MEDS ORDERED: CALCIUM GLUCONATE 1,000 MG in SODIUM CHLORIDE 0.9% 100 ML IV ONE (09:30)
[2021-03-29] MEDS: PANTOPRAZOLE 40 MG VIAL IV SCH ×2 (10:05→21:27)
[2021-03-29] MEDS: methylPREDNISolone SOD SUC 40 MG/1 ML VIAL IV SCH ×2 (10:05→21:31)
[2021-03-29] MEDS: MEROPENEM 500 MG in SODIUM CHLORIDE 0.9% 100 ML IV SCH ×3 (10:08→21:28)
[2021-03-29] MEDS: INSULIN GLARGINE 100 UNIT/ML SUBCUT SCH ×2 (10:08→10:36)
[2021-03-29] MEDS: CHOLECALCIFEROL 1,000 UNIT TABLET PO SCH (10:10)
[2021-03-29] MEDS: ZINC GLUCONATE 50 MG TABLET PO SCH (10:10)
[2021-03-29] MEDS: ASCORBIC ACID 500 MG TABLET PO SCH ×2 (10:10→21:27)
[2021-03-29] MEDS: FUROSEMIDE 40 MG/4 ML VIAL IV SCH ×2 (10:32→21:26)
[2021-03-29] MEDS ORDERED: INSULIN GLARGINE 100 UNIT/ML SUBCUT SCH (21:00)
[2021-03-30] MEDS: MIDAZOLAM 100 MG in SODIUM CHLORIDE 0.9% 80 ML IV PRN ×3 (01:03→23:59)
[2021-03-30] MEDS: ALBUTEROL/IPRATROPIUM 3 ML NEB RESP TX SCH ×4 (01:31→19:00)
[2021-03-30] MEDS: hydrALAZINE 20 MG/1 ML VIAL IV PRN ×2 (03:32→23:50)
[2021-03-30] MEDS: MEROPENEM 500 MG in SODIUM CHLORIDE 0.9% 100 ML IV SCH ×4 (03:40→21:13)
[2021-03-30] MEDS: INSULIN LISPRO 100 UNIT/ML SUBCUT SCH ×4 (06:36→23:50)
[2021-03-30 07:09] LABS: ABG Base Excess 5.6 MMOL/L (-2.5-2.5); ABG HCO3 29.5 MMOL/L (20-26); ABG Oxygen Saturation 94.9 % (95-100); ABG PCO2 40.4 MM HG (35-48); ABG PH 7.481 (7.35-7.45); ABG PO2 72.7 MM HG (80-95); ABG TCO2 30.7 MMOL/L (23-27)
[2021-03-30 08:50] LABS: Calcium 9.1 MG/DL (8.5-10.1); Osmolality,Calculated 286.2 MOS/KG (273-304); Potassium 5.5 MMOL/L (3.5-5.1)
[2021-03-30] MEDS: CHOLECALCIFEROL 1,000 UNIT TABLET PO SCH (09:36)
[2021-03-30] MEDS: ZINC GLUCONATE 50 MG TABLET PO SCH (09:36)
[2021-03-30] MEDS: ASCORBIC ACID 500 MG TABLET PO SCH ×2 (09:36→21:15)
[2021-03-30] MEDS: PANTOPRAZOLE 40 MG VIAL IV SCH ×2 (09:37→21:16)
[2021-03-30] MEDS: FUROSEMIDE 40 MG/4 ML VIAL IV SCH ×2 (09:37→21:16)
[2021-03-30] MEDS: methylPREDNISolone SOD SUC 40 MG/1 ML VIAL IV SCH ×2 (09:37→23:54)
[2021-03-30] MEDS: INSULIN GLARGINE 100 UNIT/ML SUBCUT SCH (09:38)
[2021-03-30] MEDS ORDERED: SODIUM POLYSTYRENE SULFATE 15 GM/60 ML BOTTLE PO ONE (13:00)
[2021-03-30] MEDS: fentaNYL INJ 5,000 MCG in SODIUM CHLORIDE 0.9% 150 ML IV PRN (14:48)
[2021-03-30] MEDS: GENTAMICIN INJ 200 MG in SODIUM CHLORIDE 0.9% 100 ML IV SCH (15:58)
[2021-03-30] MEDS ORDERED: INSULIN GLARGINE 100 UNIT/ML SUBCUT SCH (21:00)
[2021-03-30] MEDS: SODIUM POLYSTYRENE SULFATE 15 GM/60 ML BOTTLE PO SCH (21:17)
[2021-03-31] MEDS: ALBUTEROL/IPRATROPIUM 3 ML NEB RESP TX SCH ×4 (00:07→18:20)
[2021-03-31] MEDS: MEROPENEM 500 MG in SODIUM CHLORIDE 0.9% 100 ML IV SCH ×4 (02:20→21:25)
[2021-03-31] MEDS: SODIUM POLYSTYRENE SULFATE 15 GM/60 ML BOTTLE PO SCH ×2 (05:05→13:02)
[2021-03-31 05:18] LABS: Basophils % 0.1 % (0.0-0.8); Hematocrit 29.5 VOL% (42.0-52.0); Hemoglobin 9.3 GM/DL (14.0-18.0); Immature Granulocytes % 2.3 %; Immature Granulocytes Absolute 0.39 #; Lymphocytes # 0.6 10*3/uL (1.4-4.0); Lymphocytes % 3.4 % (21.2-54.2); Mean Corpuscular HGB Conc 31.5 GM/DL (32-36); Mean Corpuscular Volume 90.8 FL (87-102); Mean Platelet Volume 11.4 FL (9.6-12.0); Monocytes % 4.3 % (1.7-12.7); NRBC # 0.19 10*3/uL; Neutrophils % 89.9 % (38.7-73.9); Platelet Count 259 T/CUMM (130-400); Red Blood Count 3.25 MC/CUMM (3.8-5.5); Red Cell Distribution Width 15.8 % (9.3-17.3); White Blood Count 17.2 T/CUMM (4-12)
[2021-03-31] MEDS: INSULIN LISPRO 100 UNIT/ML SUBCUT SCH ×3 (05:20→18:03)
[2021-03-31 05:51] LABS: Osmolality,Calculated 289.2 MOS/KG (273-304); Potassium 4.5 MMOL/L (3.5-5.1)
[2021-03-31 05:58] LABS: Band Neutrophils 11 % (0-10); Lymphocytes 9 % (20-55); Nucleated Red Blood Cells 1 (0-5); Platelet Estimate Normal; Segmented Neutrophils 75 % (50-85); Total Cells Counted 100
[2021-03-31 05:59] LABS: Anisocytosis 1+; Polychromasia Slight
[2021-03-31] MEDS: GENTAMICIN INJ 200 MG in SODIUM CHLORIDE 0.9% 100 ML IV SCH (09:37)
[2021-03-31] MEDS: PANTOPRAZOLE 40 MG VIAL IV SCH ×2 (09:38→21:25)
[2021-03-31] MEDS: INSULIN GLARGINE 100 UNIT/ML SUBCUT SCH ×2 (09:39→21:25)
[2021-03-31] MEDS: FUROSEMIDE 40 MG/4 ML VIAL IV SCH (09:39)
[2021-03-31] MEDS: methylPREDNISolone SOD SUC 40 MG/1 ML VIAL IV SCH ×2 (09:40→21:37)
[2021-03-31] MEDS: CHOLECALCIFEROL 1,000 UNIT TABLET PO SCH (09:40)
[2021-03-31] MEDS: ZINC GLUCONATE 50 MG TABLET PO SCH (09:40)
[2021-03-31] MEDS: ASCORBIC ACID 500 MG TABLET PO SCH ×2 (09:41→21:24)
[2021-03-31 10:46] LABS: ABG Base Excess 4.3 MMOL/L (-2.5-2.5); ABG HCO3 28.3 MMOL/L (20-26); ABG Oxygen Saturation 98.6 % (95-100); ABG PCO2 49.2 MM HG (35-48); ABG PH 7.393 (7.35-7.45); ABG TCO2 27.4 MMOL/L (23-27); Pt O2 Delivery Device Ventilator
[2021-03-31] MEDS: MIDAZOLAM 100 MG in SODIUM CHLORIDE 0.9% 80 ML IV PRN (15:27)
[2021-03-31] MEDS: fentaNYL INJ 5,000 MCG in SODIUM CHLORIDE 0.9% 150 ML IV PRN (21:08)
[2021-04-01] MEDS: INSULIN LISPRO 100 UNIT/ML SUBCUT SCH ×5 (00:28→23:00)
[2021-04-01] MEDS: ALBUTEROL/IPRATROPIUM 3 ML NEB RESP TX SCH ×4 (01:00→20:26)
[2021-04-01 03:34] LABS: ABG Base Excess 4.5 MMOL/L (-2.5-2.5); ABG HCO3 28.5 MMOL/L (20-26); ABG PH 7.424 (7.35-7.45); ABG TCO2 27.3 MMOL/L (23-27)
[2021-04-01] MEDS: MEROPENEM 500 MG in SODIUM CHLORIDE 0.9% 100 ML IV SCH ×4 (04:35→23:03)
[2021-04-01] MEDS: GENTAMICIN INJ 200 MG in SODIUM CHLORIDE 0.9% 100 ML IV SCH ×2 (04:36→22:49)
[2021-04-01 04:41] LABS: Basophils % 0.1 % (0.0-0.8); Eosinophils % 0.1 % (0.00-10.9); Hematocrit 28.3 VOL% (42.0-52.0); Hemoglobin 8.7 GM/DL (14.0-18.0); Immature Granulocytes % 2.2 %; Immature Granulocytes Absolute 0.37 #; Lymphocytes # 0.7 10*3/uL (1.4-4.0); Lymphocytes % 4.1 % (21.2-54.2); Mean Corpuscular HGB Conc 30.7 GM/DL (32-36); Mean Corpuscular Volume 90.7 FL (87-102); Mean Platelet Volume 11.2 FL (9.6-12.0); Monocytes % 5.6 % (1.7-12.7); NRBC # 0.19 10*3/uL; Neutrophils % 87.9 % (38.7-73.9); Platelet Count 277 T/CUMM (130-400); Red Blood Count 3.12 MC/CUMM (3.8-5.5); White Blood Count 16.7 T/CUMM (4-12)
[2021-04-01 04:50] LABS: Calcium 8.8 MG/DL (8.5-10.1); Potassium 4.5 MMOL/L (3.5-5.1)
[2021-04-01 05:06] LABS: Hypochromasia 1+; Lymphocytes 4 % (20-55); Microcytosis 1+; Nucleated Red Blood Cells 2 (0-5); Platelet Estimate Adequate; Segmented Neutrophils 91 % (50-85); Total Cells Counted 100
[2021-04-01] MEDS: hydrALAZINE 20 MG/1 ML VIAL IV PRN ×2 (07:15→16:25)
[2021-04-01] MEDS: MIDAZOLAM 100 MG in SODIUM CHLORIDE 0.9% 80 ML IV PRN ×2 (08:57→15:27)
[2021-04-01] MEDS: ZINC GLUCONATE 50 MG TABLET PO SCH (09:15)
[2021-04-01] MEDS: FUROSEMIDE 40 MG/4 ML VIAL IV SCH (09:15)
[2021-04-01] MEDS: PANTOPRAZOLE 40 MG VIAL IV SCH ×2 (09:15→22:54)
[2021-04-01] MEDS: QUEtiapine 25 MG TABLET PO SCH ×2 (09:15→22:52)
[2021-04-01] MEDS: ASCORBIC ACID 500 MG TABLET PO SCH ×2 (09:15→22:52)
[2021-04-01] MEDS: INSULIN GLARGINE 100 UNIT/ML SUBCUT SCH ×2 (09:15→22:51)
[2021-04-01] MEDS: CHOLECALCIFEROL 1,000 UNIT TABLET PO SCH (09:15)
[2021-04-01] MEDS: methylPREDNISolone SOD SUC 40 MG/1 ML VIAL IV SCH ×2 (11:55→22:53)
[2021-04-01] MEDS: fentaNYL INJ 5,000 MCG in SODIUM CHLORIDE 0.9% 150 ML IV PRN (19:00)
[2021-04-02] MEDS: hydrALAZINE 20 MG/1 ML VIAL IV PRN (01:02)
[2021-04-02] MEDS: ALBUTEROL/IPRATROPIUM 3 ML NEB RESP TX SCH ×4 (01:54→18:16)
[2021-04-02 02:18] LABS: ABG Base Excess 8.6 MMOL/L (-2.5-2.5); ABG Oxygen Saturation 96.9 % (95-100); ABG PH 7.483 (7.35-7.45); ABG PO2 94.8 MM HG (80-95); ABG TCO2 34.4 MMOL/L (23-27)
[2021-04-02] MEDS: MEROPENEM 500 MG in SODIUM CHLORIDE 0.9% 100 ML IV SCH ×4 (03:49→21:32)
[2021-04-02 04:30] LABS: Eosinophils % 0.2 % (0.00-10.9); Hematocrit 26.3 VOL% (42.0-52.0); Immature Granulocytes % 1.3 %; Immature Granulocytes Absolute 0.15 #; Lymphocytes # 1.1 10*3/uL (1.4-4.0); Lymphocytes % 9.5 % (21.2-54.2); Mean Corpuscular HGB Conc 30.4 GM/DL (32-36); Monocytes % 7.4 % (1.7-12.7); NRBC # 0.09 10*3/uL; Neutrophils % 81.6 % (38.7-73.9); Platelet Count 243 T/CUMM (130-400); Red Blood Count 2.86 MC/CUMM (3.8-5.5); Red Cell Distribution Width 16.6 % (9.3-17.3); White Blood Count 11.3 T/CUMM (4-12)
[2021-04-02 04:42] LABS: Calcium 8.8 MG/DL (8.5-10.1); Osmolality,Calculated 286.7 MOS/KG (273-304); Potassium 3.9 MMOL/L (3.5-5.1)
[2021-04-02] MEDS: INSULIN LISPRO 100 UNIT/ML SUBCUT SCH ×3 (06:20→17:39)
[2021-04-02] MEDS: fentaNYL INJ 5,000 MCG in SODIUM CHLORIDE 0.9% 150 ML IV PRN ×2 (06:40→17:38)
[2021-04-02] MEDS ORDERED: DIGOXIN 0.5 MG/2 ML AMP IV ONE ×2 (08:56→14:31)
[2021-04-02] MEDS: PANTOPRAZOLE 40 MG VIAL IV SCH ×2 (09:18→21:32)
[2021-04-02] MEDS: FUROSEMIDE 40 MG/4 ML VIAL IV SCH (09:20)
[2021-04-02] MEDS: INSULIN GLARGINE 100 UNIT/ML SUBCUT SCH ×2 (09:21→21:32)
[2021-04-02] MEDS: ZINC GLUCONATE 50 MG TABLET PO SCH (09:22)
[2021-04-02] MEDS: CHOLECALCIFEROL 1,000 UNIT TABLET PO SCH (09:22)
[2021-04-02] MEDS: ASCORBIC ACID 500 MG TABLET PO SCH ×2 (09:22→21:31)
[2021-04-02] MEDS: QUEtiapine 25 MG TABLET PO SCH ×2 (09:22→21:31)
[2021-04-02] MEDS: methylPREDNISolone SOD SUC 40 MG/1 ML VIAL IV SCH ×2 (09:33→21:32)
[2021-04-02] MEDS: MIDAZOLAM 100 MG in SODIUM CHLORIDE 0.9% 80 ML IV PRN ×2 (11:34→23:29)
[2021-04-03] MEDS: INSULIN LISPRO 100 UNIT/ML SUBCUT SCH ×4 (00:50→17:37)
[2021-04-03] MEDS: ALBUTEROL/IPRATROPIUM 3 ML NEB RESP TX SCH ×4 (01:10→20:12)
[2021-04-03] MEDS: MEROPENEM 500 MG in SODIUM CHLORIDE 0.9% 100 ML IV SCH ×4 (03:00→20:34)
[2021-04-03 03:47] LABS: ABG Base Excess 8.1 MMOL/L (-2.5-2.5); ABG HCO3 31.9 MMOL/L (20-26); ABG PCO2 53.1 MM HG (35-48); ABG PH 7.415 (7.35-7.45); ABG TCO2 31.3 MMOL/L (23-27)
[2021-04-03 05:31] LABS: Hematocrit 26.2 VOL% (42.0-52.0); Immature Granulocytes % 1.1 %; Immature Granulocytes Absolute 0.11 #; Lymphocytes # 0.4 10*3/uL (1.4-4.0); Lymphocytes % 3.9 % (21.2-54.2); Mean Corpuscular HGB Conc 30.5 GM/DL (32-36); Mean Corpuscular Volume 91.9 FL (87-102); Mean Platelet Volume 10.5 FL (9.6-12.0); Monocytes % 4.8 % (1.7-12.7); NRBC # 0.02 10*3/uL; Neutrophils % 90.2 % (38.7-73.9); Platelet Count 271 T/CUMM (130-400); Red Blood Count 2.85 MC/CUMM (3.8-5.5); Red Cell Distribution Width 16.3 % (9.3-17.3); White Blood Count 9.8 T/CUMM (4-12)
[2021-04-03 05:50] LABS: Calcium 8.6 MG/DL (8.5-10.1); Osmolality,Calculated 284.7 MOS/KG (273-304)
[2021-04-03 05:52] LABS: Hypochromasia 1+; Lymphocytes 5 % (20-55); Segmented Neutrophils 94 % (50-85); Total Cells Counted 100
[2021-04-03 05:53] LABS: Microcytosis 1+; Platelet Estimate Normal; Polychromasia Slight
[2021-04-03] MEDS: ASCORBIC ACID 500 MG TABLET PO SCH ×2 (08:48→20:35)
[2021-04-03] MEDS: CHOLECALCIFEROL 1,000 UNIT TABLET PO SCH (08:48)
[2021-04-03] MEDS: QUEtiapine 25 MG TABLET PO SCH ×2 (08:48→20:35)
[2021-04-03] MEDS: ZINC GLUCONATE 50 MG TABLET PO SCH (08:48)
[2021-04-03] MEDS: FUROSEMIDE 40 MG/4 ML VIAL IV SCH ×2 (08:49→20:36)
[2021-04-03] MEDS: INSULIN GLARGINE 100 UNIT/ML SUBCUT SCH ×2 (08:49→20:35)
[2021-04-03] MEDS: DIGOXIN 0.5 MG/2 ML AMP IV SCH (08:49)
[2021-04-03] MEDS: PANTOPRAZOLE 40 MG VIAL IV SCH ×2 (08:50→20:35)
[2021-04-03] MEDS: methylPREDNISolone SOD SUC 40 MG/1 ML VIAL IV SCH (10:49)
[2021-04-03] MEDS: fentaNYL INJ 5,000 MCG in SODIUM CHLORIDE 0.9% 150 ML IV PRN (11:11)
[2021-04-03] MEDS: MIDAZOLAM 100 MG in SODIUM CHLORIDE 0.9% 80 ML IV PRN (14:12)
[2021-04-03] MEDS: DEXMEDETOMIDINE 200 MCG in SODIUM CHLORIDE 0.9% 48 ML IV PRN ×2 (15:09→20:09)
[2021-04-04] MEDS: ALBUTEROL/IPRATROPIUM 3 ML NEB RESP TX SCH ×4 (00:19→19:00)
[2021-04-04] MEDS: DEXMEDETOMIDINE 400 MCG in SODIUM CHLORIDE 0.9% 96 ML IV PRN ×3 (03:09→20:55)
[2021-04-04] MEDS: MEROPENEM 500 MG in SODIUM CHLORIDE 0.9% 100 ML IV SCH (04:24)
[2021-04-04 05:17] LABS: Allen Test Positive; Pt O2 Delivery Device Ventilator
[2021-04-04 05:19] LABS: ABG Base Excess 11.4 MMOL/L (-2.5-2.5); ABG HCO3 36.5 MMOL/L (20-26); ABG Oxygen Saturation 97.4 % (95-100); ABG PCO2 51.8 MM HG (35-48); ABG PH 7.466 (7.35-7.45); ABG PO2 103.3 MM HG (80-95); ABG TCO2 38.1 MMOL/L (23-27)
[2021-04-04] MEDS: INSULIN LISPRO 100 UNIT/ML SUBCUT SCH ×4 (06:23→17:11)
[2021-04-04 07:54] LABS: Basophils % 0.1 % (0.0-0.8); Eosinophils # 0.1 10*3/uL (0.0-0.87); Eosinophils % 1.2 % (0.00-10.9); Hematocrit 28.9 VOL% (42.0-52.0); Immature Granulocytes % 0.3 %; Immature Granulocytes Absolute 0.03 #; Lymphocytes # 1.8 10*3/uL (1.4-4.0); Lymphocytes % 17.5 % (21.2-54.2); Mean Corpuscular HGB Conc 31.1 GM/DL (32-36); Mean Corpuscular Volume 91.7 FL (87-102); Mean Platelet Volume 10.2 FL (9.6-12.0); Monocytes % 10.1 % (1.7-12.7); NRBC # 0.02 10*3/uL; Neutrophils % 70.8 % (38.7-73.9); Platelet Count 263 T/CUMM (130-400); Red Blood Count 3.15 MC/CUMM (3.8-5.5); Red Cell Distribution Width 16.4 % (9.3-17.3); White Blood Count 10.5 T/CUMM (4-12)
[2021-04-04 08:13] LABS: Albumin 2.6 G/DL (3.4-5.0); Calcium 8.8 MG/DL (8.5-10.1); Potassium 4.6 MMOL/L (3.5-5.1); Total Protein 6.2 G/DL (6.4-8.2)
[2021-04-04] MEDS: FUROSEMIDE 40 MG/4 ML VIAL IV SCH ×2 (08:26→21:44)
[2021-04-04] MEDS: PANTOPRAZOLE 40 MG VIAL IV SCH ×2 (08:26→21:43)
[2021-04-04] MEDS: INSULIN GLARGINE 100 UNIT/ML SUBCUT SCH ×2 (08:27→21:43)
[2021-04-04] MEDS: DIGOXIN 0.5 MG/2 ML AMP IV SCH (08:28)
[2021-04-04] MEDS: CHOLECALCIFEROL 1,000 UNIT TABLET PO SCH (08:28)
[2021-04-04] MEDS: ZINC GLUCONATE 50 MG TABLET PO SCH (08:28)
[2021-04-04] MEDS: predniSONE 20 MG TABLET PO SCH (08:29)
[2021-04-04] MEDS: QUEtiapine 25 MG TABLET PO SCH ×2 (08:29→21:45)
[2021-04-04] MEDS: ASCORBIC ACID 500 MG TABLET PO SCH ×2 (08:29→21:44)
[2021-04-04] MEDS: fentaNYL INJ 5,000 MCG in SODIUM CHLORIDE 0.9% 150 ML IV PRN (21:20)
[2021-04-04] MEDS: ENOXAPARIN 40 MG/0.4 ML SYRINGE SUBCUT SCH (21:47)
[2021-04-04] MEDS: MIDAZOLAM 100 MG in SODIUM CHLORIDE 0.9% 80 ML IV PRN (23:00)
[2021-04-05] MEDS: INSULIN LISPRO 100 UNIT/ML SUBCUT SCH ×4 (00:17→18:13)
[2021-04-05] MEDS: ALBUTEROL/IPRATROPIUM 3 ML NEB RESP TX SCH ×4 (00:45→19:23)
[2021-04-05] MEDS: DEXMEDETOMIDINE 400 MCG in SODIUM CHLORIDE 0.9% 96 ML IV PRN (02:31)
[2021-04-05 03:54] LABS: ABG Base Excess 12.2 MMOL/L (-2.5-2.5); ABG Oxygen Saturation 98.9 % (95-100); ABG PCO2 51.9 MM HG (35-48); ABG PH 7.469 (7.35-7.45); ABG TCO2 34.7 MMOL/L (23-27)
[2021-04-05] MEDS: QUEtiapine 25 MG TABLET PO SCH (08:02)
[2021-04-05] MEDS: CHOLECALCIFEROL 1,000 UNIT TABLET PO SCH (08:02)
[2021-04-05] MEDS: predniSONE 20 MG TABLET PO SCH (08:03)
[2021-04-05] MEDS: ZINC GLUCONATE 50 MG TABLET PO SCH (08:03)
[2021-04-05] MEDS: ASCORBIC ACID 500 MG TABLET PO SCH ×2 (08:03→21:30)
[2021-04-05] MEDS: INSULIN GLARGINE 100 UNIT/ML SUBCUT SCH (08:03)
[2021-04-05] MEDS: FUROSEMIDE 40 MG/4 ML VIAL IV SCH ×2 (08:06→21:30)
[2021-04-05] MEDS: PANTOPRAZOLE 40 MG VIAL IV SCH ×2 (08:10→21:30)
[2021-04-05] MEDS: DIGOXIN 0.5 MG/2 ML AMP IV SCH (08:10)
[2021-04-05 08:26] LABS: Basophils % 0.1 % (0.0-0.8); Eosinophils # 0.1 10*3/uL (0.0-0.87); Eosinophils % 1.1 % (0.00-10.9); Hematocrit 30.4 VOL% (42.0-52.0); Hemoglobin 9.5 GM/DL (14.0-18.0); Immature Granulocytes % 0.5 %; Immature Granulocytes Absolute 0.06 #; Lymphocytes # 1.7 10*3/uL (1.4-4.0); Lymphocytes % 14.6 % (21.2-54.2); Mean Corpuscular HGB Conc 31.3 GM/DL (32-36); Mean Platelet Volume 10.2 FL (9.6-12.0); Monocytes % 8.4 % (1.7-12.7); Neutrophils % 75.3 % (38.7-73.9); Platelet Count 287 T/CUMM (130-400); Red Blood Count 3.34 MC/CUMM (3.8-5.5); Red Cell Distribution Width 15.8 % (9.3-17.3); White Blood Count 11.3 T/CUMM (4-12)
[2021-04-05 09:04] LABS: Albumin 2.8 G/DL (3.4-5.0); Calcium 9.2 MG/DL (8.5-10.1); Osmolality,Calculated 278.2 MOS/KG (273-304); Potassium 4.1 MMOL/L (3.5-5.1); Total Protein 6.6 G/DL (6.4-8.2)
[2021-04-05] MEDS: hydrALAZINE 20 MG/1 ML VIAL IV PRN (15:33)
[2021-04-05] MEDS: METOPROLOL TARTRATE 5 MG/5 ML VIAL IV PRN ×2 (15:56→22:21)
[2021-04-05] MEDS ORDERED: INSULIN GLARGINE 100 UNIT/ML SUBCUT SCH (21:00)
[2021-04-05] MEDS: ENOXAPARIN 40 MG/0.4 ML SYRINGE SUBCUT SCH (21:29)
[2021-04-06] MEDS: INSULIN LISPRO 100 UNIT/ML SUBCUT SCH ×4 (00:20→18:09)
[2021-04-06 00:27] LABS: ABG Base Excess 9.3 MMOL/L (-2.5-2.5); ABG HCO3 34.5 MMOL/L (20-26); ABG PCO2 50.1 MM HG (35-48); ABG PH 7.456 (7.35-7.45); ABG PO2 50.7 MM HG (80-95); ABG TCO2 36.1 MMOL/L (23-27)
[2021-04-06] MEDS ORDERED: FUROSEMIDE 40 MG/4 ML VIAL IV ONE (00:38)
[2021-04-06] MEDS: ALBUTEROL/IPRATROPIUM 3 ML NEB RESP TX SCH ×4 (01:20→19:43)
[2021-04-06 01:59] LABS: ABG HCO3 31.9 MMOL/L (20-26); ABG PCO2 42.4 MM HG (35-48); ABG TCO2 28.6 MMOL/L (23-27)
[2021-04-06] MEDS ORDERED: fentaNYL 25 MCG/HR PATCH TRANSDERM SCH (02:30)
[2021-04-06] MEDS: METOPROLOL TARTRATE 5 MG/5 ML VIAL IV PRN ×2 (02:59→22:25)
[2021-04-06 04:18] LABS: ABG Base Excess 7.7 MMOL/L (-2.5-2.5); ABG HCO3 31.5 MMOL/L (20-26); ABG Oxygen Saturation 97.8 % (95-100); ABG PCO2 45.2 MM HG (35-48); ABG PH 7.464 (7.35-7.45); ABG PO2 95.4 MM HG (80-95)
[2021-04-06] MEDS ORDERED: LABETALOL 20 MG/4 ML SYRINGE IV ONE (04:55)
[2021-04-06] MEDS: cloNIDine 0.2 MG/24 HR PATCH TRANSDERM SCH ×2 (05:11→09:36)
[2021-04-06 05:52] LABS: Basophils % 0.1 % (0.0-0.8); Eosinophils # 0.1 10*3/uL (0.0-0.87); Eosinophils % 0.3 % (0.00-10.9); Hemoglobin 11.2 GM/DL (14.0-18.0); Immature Granulocytes % 0.5 %; Immature Granulocytes Absolute 0.09 #; Lymphocytes # 1.7 10*3/uL (1.4-4.0); Lymphocytes % 8.7 % (21.2-54.2); Mean Corpuscular Volume 89.5 FL (87-102); Mean Platelet Volume 10.3 FL (9.6-12.0); Monocytes % 5.3 % (1.7-12.7); NRBC # 0.03 10*3/uL; Neutrophils % 85.1 % (38.7-73.9); Platelet Count 437 T/CUMM (130-400); Red Blood Count 3.91 MC/CUMM (3.8-5.5); Red Cell Distribution Width 15.9 % (9.3-17.3); White Blood Count 19.4 T/CUMM (4-12)
[2021-04-06 06:14] LABS: Calcium 10.1 MG/DL (8.5-10.1); Osmolality,Calculated 276.2 MOS/KG (273-304); Potassium 3.4 MMOL/L (3.5-5.1); Risk Ratio 4.55; VLDL Cholesterol 37.6 MG/DL
[2021-04-06 06:16] LABS: Band Neutrophils 1 % (0-10); Lymphocytes 14 % (20-55); Platelet Estimate Increased; Segmented Neutrophils 83 % (50-85); Total Cells Counted 100
[2021-04-06] MEDS ORDERED: INSULIN GLARGINE 100 UNIT/ML SUBCUT SCH (09:00)
[2021-04-06] MEDS: ASCORBIC ACID 500 MG TABLET PO SCH ×2 (09:34→21:18)
[2021-04-06] MEDS: CHOLECALCIFEROL 1,000 UNIT TABLET PO SCH (09:34)
[2021-04-06] MEDS: predniSONE 20 MG TABLET PO SCH (09:34)
[2021-04-06] MEDS: ZINC GLUCONATE 50 MG TABLET PO SCH (09:34)
[2021-04-06] MEDS: PANTOPRAZOLE 40 MG VIAL IV SCH ×2 (09:35→21:17)
[2021-04-06] MEDS: DIGOXIN 0.5 MG/2 ML AMP IV SCH (09:35)
[2021-04-06] MEDS: FUROSEMIDE 40 MG/4 ML VIAL IV SCH ×2 (12:14→21:17)
[2021-04-06] MEDS: ENOXAPARIN 40 MG/0.4 ML SYRINGE SUBCUT SCH (21:17)
[2021-04-06] MEDS: INSULIN GLARGINE 100 UNIT/ML SUBCUT SCH (21:17)
[2021-04-07] MEDS: ALBUTEROL/IPRATROPIUM 3 ML NEB RESP TX SCH ×4 (00:07→19:00)
[2021-04-07] MEDS: INSULIN LISPRO 100 UNIT/ML SUBCUT SCH ×4 (00:16→17:33)
[2021-04-07 03:29] LABS: ABG Base Excess 7.2 MMOL/L (-2.5-2.5); ABG HCO3 31.1 MMOL/L (20-26); ABG Oxygen Saturation 99.4 % (95-100); ABG PCO2 48.4 MM HG (35-48); ABG PH 7.436 (7.35-7.45); ABG TCO2 29.3 MMOL/L (23-27)
[2021-04-07 06:42] LABS: Basophils % 0.1 % (0.0-0.8); Eosinophils % 0.2 % (0.00-10.9); Hematocrit 34.1 VOL% (42.0-52.0); Hemoglobin 10.5 GM/DL (14.0-18.0); Immature Granulocytes % 0.3 %; Immature Granulocytes Absolute 0.03 #; Lymphocytes # 1.2 10*3/uL (1.4-4.0); Lymphocytes % 11.3 % (21.2-54.2); Mean Corpuscular HGB Conc 30.8 GM/DL (32-36); Mean Corpuscular Volume 91.9 FL (87-102); Mean Platelet Volume 10.6 FL (9.6-12.0); Monocytes % 8.3 % (1.7-12.7); Neutrophils % 79.8 % (38.7-73.9); Platelet Count 400 T/CUMM (130-400); Red Blood Count 3.71 MC/CUMM (3.8-5.5); Red Cell Distribution Width 15.5 % (9.3-17.3); White Blood Count 10.5 T/CUMM (4-12)
[2021-04-07 07:07] LABS: Band Neutrophils 9 % (0-10); Hypochromasia 1+; Lymphocytes 8 % (20-55); Microcytosis 1+; Segmented Neutrophils 80 % (50-85); Total Cells Counted 100
[2021-04-07 07:08] LABS: Platelet Estimate Normal
[2021-04-07] MEDS: INSULIN GLARGINE 100 UNIT/ML SUBCUT SCH ×2 (08:54→20:23)
[2021-04-07 08:57] LABS: Calcium 9.9 MG/DL (8.5-10.1); Potassium 3.7 MMOL/L (3.5-5.1)
[2021-04-07] MEDS: DIGOXIN 0.5 MG/2 ML AMP IV SCH (09:05)
[2021-04-07] MEDS: ASCORBIC ACID 500 MG TABLET PO SCH ×2 (09:06→20:24)
[2021-04-07] MEDS: predniSONE 20 MG TABLET PO SCH (09:06)
[2021-04-07] MEDS: ZINC GLUCONATE 50 MG TABLET PO SCH (09:06)
[2021-04-07] MEDS: PANTOPRAZOLE 40 MG TABLET PO SCH ×2 (09:07→20:24)
[2021-04-07] MEDS: CHOLECALCIFEROL 1,000 UNIT TABLET PO SCH (09:07)
[2021-04-07] MEDS: FUROSEMIDE 40 MG/4 ML VIAL IV SCH (09:12)
[2021-04-07] MEDS ORDERED: ONDANSETRON 4 MG/2 ML VIAL ONE (11:10)
[2021-04-07] MEDS ORDERED: ONDANSETRON 4 MG/2 ML VIAL IV PRN (11:14)
[2021-04-07] MEDS: POTASSIUM BICARB EFFERVESCENT 20 MEQ TAB.EFF PER TUBE PRN (13:50)
[2021-04-07 19:54] LABS: ABG Base Excess 8.3 MMOL/L (-2.5-2.5); ABG HCO3 31.9 MMOL/L (20-26); ABG Oxygen Saturation 90.8 % (95-100); ABG PCO2 42.9 MM HG (35-48); ABG PH 7.488 (7.35-7.45); ABG TCO2 29.4 MMOL/L (23-27)
[2021-04-07] MEDS: ENOXAPARIN 40 MG/0.4 ML SYRINGE SUBCUT SCH (20:23)
[2021-04-07] MEDS: ATORVASTATIN 20 MG TABLET PO SCH (20:24)
[2021-04-07] MEDS: ACETAMINOPHEN 325 MG TABLET PO PRN (20:24)
[2021-04-07] MEDS: METOPROLOL TARTRATE 5 MG/5 ML VIAL IV PRN (22:28)
[2021-04-07] MEDS ORDERED: KETOROLAC 30 MG/1 ML VIAL IV ONE (22:39)
[2021-04-07] MEDS ORDERED: ACETAMINOPHEN 325 MG/10.15 ML UDCUP PO ONE (22:39)
[2021-04-07] MEDS ORDERED: SODIUM CHLORIDE 0.9% 500 ML IV ONE (22:39)
[2021-04-07] MEDS ORDERED: VANCOMYCIN INJ 2,500 MG in SODIUM CHLORIDE 0.9% 500 ML IV ONE (23:30)
[2021-04-08] MEDS: INSULIN LISPRO 100 UNIT/ML SUBCUT SCH ×5 (00:01→23:43)
[2021-04-08] MEDS: ALBUTEROL/IPRATROPIUM 3 ML NEB RESP TX SCH ×4 (00:14→19:00)
[2021-04-08 00:15] LABS: Amorphous Crystals,Urine Occasional /HPF (Few); Bilirubin,Urine Negative (Negative); Blood, Urine Moderate mg/dL (Negative); Glucose,Urine (UA) Negative (Negative); Granular Casts,Urine 3 /LPF (0-1); Hyaline Casts,Urine 9 /LPF (0-3); Ketones,Urine Negative (Negative); Mucus,Urine Occasional /LPF (Occasional); Nitrite,Urine Negative (Negative); Protein,Urine 30 MG/DL; RBC,Urine 75 /HPF (0-4); Squamous Epithelial Cell,Urine Occasional /HPF (0-10); Urine Appearance CLOUDY (Clear); Urine Color Amber (Yellow); Urine Specific Gravity 1.016 (1.001-1.035)
[2021-04-08] MEDS ORDERED: SODIUM CHLORIDE 0.9% 1,000 ML IV ONE (01:56)
[2021-04-08 03:35] LABS: ABG Base Excess 5.7 MMOL/L (-2.5-2.5); ABG HCO3 31.4 MMOL/L (20-26); ABG PCO2 52.4 MM HG (35-48); ABG PH 7.396 (7.35-7.45)
[2021-04-08 03:38] LABS: ABG PO2 29.5 MM HG (80-95)
[2021-04-08 03:49] LABS: Basophils % 0.5 % (0.0-0.8); Eosinophils % 0.8 % (0.00-10.9); Hematocrit 29.6 VOL% (42.0-52.0); Hemoglobin 8.7 GM/DL (14.0-18.0); Immature Granulocytes % 0.5 %; Immature Granulocytes Absolute 0.02 #; Lymphocytes # 0.6 10*3/uL (1.4-4.0); Lymphocytes % 15.9 % (21.2-54.2); Mean Corpuscular HGB Conc 29.4 GM/DL (32-36); Mean Corpuscular Volume 94.9 FL (87-102); Mean Platelet Volume 10.5 FL (9.6-12.0); Monocytes % 6.2 % (1.7-12.7); NRBC # 0.04 10*3/uL; Neutrophils % 76.1 % (38.7-73.9); Platelet Count 302 T/CUMM (130-400); Red Blood Count 3.12 MC/CUMM (3.8-5.5); Red Cell Distribution Width 15.5 % (9.3-17.3); White Blood Count 3.9 T/CUMM (4-12)
[2021-04-08 03:59] LABS: Calcium 8.7 MG/DL (8.5-10.1); Osmolality,Calculated 299.5 MOS/KG (273-304); Potassium 4.2 MMOL/L (3.5-5.1)
[2021-04-08 04:14] LABS: ABG Base Excess 5.3 MMOL/L (-2.5-2.5); ABG HCO3 29.2 MMOL/L (20-26); ABG Oxygen Saturation 97.4 % (95-100); ABG PCO2 40.2 MM HG (35-48); ABG PH 7.479 (7.35-7.45); ABG PO2 101.1 MM HG (80-95); ABG TCO2 30.4 MMOL/L (23-27)
[2021-04-08] MEDS ORDERED: PHENYLEPHRINE DRIP 40 MG/250 ML PREMIX IV PRN (05:52)
[2021-04-08 07:17] LABS: Band Neutrophils 38 % (0-10); Lymphocytes 31 % (20-55); Metamyelocytes 11 %; Myelocytes 5 %; Nucleated Red Blood Cells 2 (0-5); Platelet Estimate Normal; Segmented Neutrophils 8 % (50-85); Total Cells Counted 100
[2021-04-08 07:18] LABS: Anisocytosis 1+; Atypical Lymphocytes 1+; Polychromasia Slight; Smudge Cells Few; Stomatocytes Few
[2021-04-08] MEDS: MEROPENEM 500 MG in SODIUM CHLORIDE 0.9% 100 ML IV SCH ×3 (08:29→20:16)
[2021-04-08] MEDS: DIGOXIN 0.5 MG/2 ML AMP IV SCH (08:29)
[2021-04-08] MEDS: INSULIN GLARGINE 100 UNIT/ML SUBCUT SCH ×2 (08:32→20:16)
[2021-04-08] MEDS: CHOLECALCIFEROL 1,000 UNIT TABLET PO SCH (08:34)
[2021-04-08] MEDS: ASCORBIC ACID 500 MG TABLET PO SCH ×2 (08:34→20:17)
[2021-04-08] MEDS: ZINC GLUCONATE 50 MG TABLET PO SCH (08:34)
[2021-04-08] MEDS: PANTOPRAZOLE 40 MG TABLET PO SCH ×2 (08:34→20:17)
[2021-04-08] MEDS: predniSONE 20 MG TABLET PO SCH (08:34)
[2021-04-08] MEDS ORDERED: FUROSEMIDE 40 MG/4 ML VIAL IV SCH (09:00)
[2021-04-08 09:54] LABS: Bilirubin,Direct 0.74 MG/DL (0.0-0.20); Bilirubin,Indirect 0.8 MG/DL (0.0-1.0); Bilirubin,Total 1.5 MG/DL (0.20-1.00); Total Protein 6.3 G/DL (6.4-8.2)
[2021-04-08] MEDS ORDERED: NALOXONE 0.4 MG/ML VIAL IV ONE ×2 (10:15→10:21)
[2021-04-08] MEDS: VANCOMYCIN INJ 2,500 MG in SODIUM CHLORIDE 0.9% 500 ML IV SCH ×2 (12:29→23:55)
[2021-04-08] MEDS: LACTATED RINGERS 1,000 ML IV SCH (19:10)
[2021-04-08] MEDS: ENOXAPARIN 40 MG/0.4 ML SYRINGE SUBCUT SCH (20:16)
[2021-04-08] MEDS: ATORVASTATIN 20 MG TABLET PO SCH (20:17)
[2021-04-09] MEDS: ALBUTEROL/IPRATROPIUM 3 ML NEB RESP TX SCH ×4 (01:00→19:27)
[2021-04-09] MEDS: ACETYLCYSTEINE 20% 800 MG/4 ML VIAL RESP TX SCH ×4 (01:00→19:27)
[2021-04-09] MEDS: MEROPENEM 500 MG in SODIUM CHLORIDE 0.9% 100 ML IV SCH ×4 (01:11→20:21)
[2021-04-09] MEDS: LACTATED RINGERS 1,000 ML IV SCH (05:37)
[2021-04-09] MEDS: INSULIN LISPRO 100 UNIT/ML SUBCUT SCH ×3 (05:37→18:34)
[2021-04-09 06:01] LABS: ABG Oxygen Saturation 98.1 % (95-100); ABG PCO2 51.1 MM HG (35-48); ABG PH 7.374 (7.35-7.45); ABG TCO2 28.1 MMOL/L (23-27)
[2021-04-09 06:51] LABS: Basophils % 0.2 % (0.0-0.8); Eosinophils # 0.1 10*3/uL (0.0-0.87); Hematocrit 25.6 VOL% (42.0-52.0); Hemoglobin 7.7 GM/DL (14.0-18.0); Immature Granulocytes % 5.7 %; Immature Granulocytes Absolute 0.28 #; Lymphocytes # 0.8 10*3/uL (1.4-4.0); Lymphocytes % 16.7 % (21.2-54.2); Mean Corpuscular HGB Conc 30.1 GM/DL (32-36); Mean Corpuscular Volume 94.5 FL (87-102); Mean Platelet Volume 10.8 FL (9.6-12.0); Monocytes % 9.6 % (1.7-12.7); Neutrophils % 66.8 % (38.7-73.9); Platelet Count 244 T/CUMM (130-400); Red Blood Count 2.71 MC/CUMM (3.8-5.5); Red Cell Distribution Width 15.7 % (9.3-17.3); White Blood Count 4.9 T/CUMM (4-12)
[2021-04-09 07:05] LABS: Calcium 9.1 MG/DL (8.5-10.1); Osmolality,Calculated 297.5 MOS/KG (273-304); Potassium 4.3 MMOL/L (3.5-5.1)
[2021-04-09 07:50] LABS: Albumin 1.9 G/DL (3.4-5.0); Bilirubin,Total 0.7 MG/DL (0.20-1.00); Calcium 9.2 MG/DL (8.5-10.1); Osmolality,Calculated 302.3 MOS/KG (273-304); Potassium 4.4 MMOL/L (3.5-5.1); Total Protein 6.3 G/DL (6.4-8.2)
[2021-04-09 07:52] LABS: Band Neutrophils 32 % (0-10); Eosinophils 4 % (0-10); Lymphocytes 22 % (20-55); Metamyelocytes 4 %; Segmented Neutrophils 31 % (50-85); Total Cells Counted 100
[2021-04-09 07:53] LABS: Anisocytosis 1+; Platelet Estimate Normal; Tear Drop Cells Few
[2021-04-09] MEDS: INSULIN GLARGINE 100 UNIT/ML SUBCUT SCH ×2 (08:37→20:22)
[2021-04-09] MEDS: DIGOXIN 0.5 MG/2 ML AMP IV SCH (08:37)
[2021-04-09] MEDS: CHOLECALCIFEROL 1,000 UNIT TABLET PO SCH (08:38)
[2021-04-09] MEDS: ZINC GLUCONATE 50 MG TABLET PO SCH (08:38)
[2021-04-09] MEDS: predniSONE 20 MG TABLET PO SCH (08:38)
[2021-04-09] MEDS: ASCORBIC ACID 500 MG TABLET PO SCH ×2 (08:39→20:22)
[2021-04-09] MEDS: PANTOPRAZOLE 40 MG TABLET PO SCH ×2 (08:39→20:22)
[2021-04-09 13:20] LABS: Hematocrit 27.7 VOL% (42.0-52.0); Hemoglobin 8.2 GM/DL (14.0-18.0)
[2021-04-09] MEDS ORDERED: LIDOCAINE 1% 20 ML VIAL RESP TX ONE (14:56)
[2021-04-09] MEDS ORDERED: ACETYLCYSTEINE 20% 800 MG/4 ML VIAL RESP TX SCH (20:00)
[2021-04-09] MEDS: ATORVASTATIN 20 MG TABLET PO SCH (20:22)
[2021-04-09] MEDS: ENOXAPARIN 40 MG/0.4 ML SYRINGE SUBCUT SCH (20:22)
[2021-04-10] MEDS: INSULIN LISPRO 100 UNIT/ML SUBCUT SCH ×4 (00:29→17:36)
[2021-04-10] MEDS: ALBUTEROL/IPRATROPIUM 3 ML NEB RESP TX SCH ×4 (00:48→18:38)
[2021-04-10] MEDS: ACETYLCYSTEINE 20% 800 MG/4 ML VIAL RESP TX SCH ×4 (00:48→18:38)
[2021-04-10] MEDS: MEROPENEM 500 MG in SODIUM CHLORIDE 0.9% 100 ML IV SCH ×4 (02:29→20:27)
[2021-04-10 04:38] LABS: ABG Base Excess 5.1 MMOL/L (-2.5-2.5); ABG HCO3 30.5 MMOL/L (20-26); ABG Oxygen Saturation 96.7 % (95-100); ABG PCO2 50.2 MM HG (35-48); ABG PH 7.402 (7.35-7.45); ABG TCO2 32.1 MMOL/L (23-27); Allen Test Positive; Pt O2 Delivery Device BIPAP
[2021-04-10 05:12] LABS: Eosinophils # 0.1 10*3/uL (0.0-0.87); Eosinophils % 1.3 % (0.00-10.9); Hematocrit 26.4 VOL% (42.0-52.0); Hemoglobin 7.7 GM/DL (14.0-18.0); Immature Granulocytes % 0.6 %; Immature Granulocytes Absolute 0.03 #; Lymphocytes # 0.9 10*3/uL (1.4-4.0); Lymphocytes % 15.9 % (21.2-54.2); Mean Corpuscular HGB Conc 29.2 GM/DL (32-36); Mean Corpuscular Volume 95.3 FL (87-102); Mean Platelet Volume 10.9 FL (9.6-12.0); Monocytes % 9.4 % (1.7-12.7); Neutrophils % 72.8 % (38.7-73.9); Platelet Count 253 T/CUMM (130-400); Red Blood Count 2.77 MC/CUMM (3.8-5.5); Red Cell Distribution Width 15.5 % (9.3-17.3); White Blood Count 5.3 T/CUMM (4-12)
[2021-04-10 05:44] LABS: Band Neutrophils 1 % (0-10); Hypochromasia 2+; Lymphocytes 15 % (20-55); Microcytosis 1+; Nucleated Red Blood Cells 1 (0-5); Platelet Estimate Adequate; Segmented Neutrophils 76 % (50-85); Total Cells Counted 100
[2021-04-10 05:52] LABS: Calcium 9.5 MG/DL (8.5-10.1); Osmolality,Calculated 302.8 MOS/KG (273-304); Potassium 4.3 MMOL/L (3.5-5.1)
[2021-04-10] MEDS: DIGOXIN 0.5 MG/2 ML AMP IV SCH (08:42)
[2021-04-10] MEDS: CHOLECALCIFEROL 1,000 UNIT TABLET PO SCH (08:43)
[2021-04-10] MEDS: ASCORBIC ACID 500 MG TABLET PO SCH ×2 (08:43→20:28)
[2021-04-10] MEDS: PANTOPRAZOLE 40 MG TABLET PO SCH ×2 (08:43→20:28)
[2021-04-10] MEDS: ZINC GLUCONATE 50 MG TABLET PO SCH (08:43)
[2021-04-10] MEDS: INSULIN GLARGINE 100 UNIT/ML SUBCUT SCH ×2 (08:43→20:27)
[2021-04-10] MEDS: predniSONE 20 MG TABLET PO SCH (08:44)
[2021-04-10] MEDS: hydrALAZINE 20 MG/1 ML VIAL IV PRN (16:06)
[2021-04-10] MEDS: ENOXAPARIN 40 MG/0.4 ML SYRINGE SUBCUT SCH (20:27)
[2021-04-10] MEDS: ATORVASTATIN 20 MG TABLET PO SCH (20:28)
[2021-04-11] MEDS: INSULIN LISPRO 100 UNIT/ML SUBCUT SCH ×4 (00:38→18:20)
[2021-04-11] MEDS: ALBUTEROL/IPRATROPIUM 3 ML NEB RESP TX SCH ×4 (01:48→18:03)
[2021-04-11] MEDS: ACETYLCYSTEINE 20% 800 MG/4 ML VIAL RESP TX SCH ×4 (01:48→18:03)
[2021-04-11] MEDS: MEROPENEM 500 MG in SODIUM CHLORIDE 0.9% 100 ML IV SCH ×4 (02:16→20:23)
[2021-04-11 04:26] LABS: ABG Base Excess 6.4 MMOL/L (-2.5-2.5); ABG HCO3 31.7 MMOL/L (20-26); ABG Oxygen Saturation 97.3 % (95-100); ABG PCO2 50.4 MM HG (35-48); ABG PH 7.417 (7.35-7.45); ABG PO2 94.4 MM HG (80-95); ABG TCO2 33.3 MMOL/L (23-27)
[2021-04-11 06:08] LABS: Calcium 10.1 MG/DL (8.5-10.1); Osmolality,Calculated 302.7 MOS/KG (273-304); Potassium 4.3 MMOL/L (3.5-5.1)
[2021-04-11 08:12] LABS: Basophils % 0.1 % (0.0-0.8); Eosinophils # 0.1 10*3/uL (0.0-0.87); Eosinophils % 1.1 % (0.00-10.9); Hemoglobin 8.4 GM/DL (14.0-18.0); Immature Granulocytes % 0.6 %; Immature Granulocytes Absolute 0.05 #; Lymphocytes # 1.3 10*3/uL (1.4-4.0); Mean Corpuscular Volume 95.4 FL (87-102); Mean Platelet Volume 11.3 FL (9.6-12.0); Monocytes % 9.3 % (1.7-12.7); Neutrophils % 73.9 % (38.7-73.9); Platelet Count 282 T/CUMM (130-400); Red Blood Count 3.04 MC/CUMM (3.8-5.5); Red Cell Distribution Width 15.5 % (9.3-17.3); White Blood Count 8.4 T/CUMM (4-12)
[2021-04-11] MEDS: CHOLECALCIFEROL 1,000 UNIT TABLET PO SCH (08:33)
[2021-04-11] MEDS: INSULIN GLARGINE 100 UNIT/ML SUBCUT SCH ×2 (08:33→20:23)
[2021-04-11] MEDS: PANTOPRAZOLE 40 MG TABLET PO SCH ×2 (08:34→20:24)
[2021-04-11] MEDS: ASCORBIC ACID 500 MG TABLET PO SCH ×2 (08:34→20:24)
[2021-04-11] MEDS: predniSONE 20 MG TABLET PO SCH (08:34)
[2021-04-11] MEDS: ZINC GLUCONATE 50 MG TABLET PO SCH (08:34)
[2021-04-11 09:02] LABS: Eosinophils 3 % (0-10); Hypochromasia 1+; Lymphocytes 17 % (20-55); Microcytosis 1+; Platelet Estimate Adequate; Segmented Neutrophils 73 % (50-85); Total Cells Counted 100
[2021-04-11] MEDS: DIGOXIN 0.125 MG TABLET PO SCH (12:45)
[2021-04-11] MEDS ORDERED: FUROSEMIDE 40 MG/4 ML VIAL IV ONE (13:51)
[2021-04-11] MEDS: METOPROLOL TARTRATE 5 MG/5 ML VIAL IV PRN (20:15)
[2021-04-11] MEDS: ATORVASTATIN 20 MG TABLET PO SCH (20:23)
[2021-04-11] MEDS: ENOXAPARIN 40 MG/0.4 ML SYRINGE SUBCUT SCH (20:24)
[2021-04-12] MEDS: ALBUTEROL/IPRATROPIUM 3 ML NEB RESP TX SCH ×4 (01:00→19:00)
[2021-04-12] MEDS: ACETYLCYSTEINE 20% 800 MG/4 ML VIAL RESP TX SCH ×3 (01:00→19:00)
[2021-04-12] MEDS: hydrALAZINE 20 MG/1 ML VIAL IV PRN (01:15)
[2021-04-12] MEDS: INSULIN LISPRO 100 UNIT/ML SUBCUT SCH ×4 (01:27→17:42)
[2021-04-12] MEDS: MEROPENEM 500 MG in SODIUM CHLORIDE 0.9% 100 ML IV SCH ×4 (01:44→20:10)
[2021-04-12 06:39] LABS: Basophils % 0.2 % (0.0-0.8); Eosinophils # 0.1 10*3/uL (0.0-0.87); Eosinophils % 0.8 % (0.00-10.9); Hematocrit 29.8 VOL% (42.0-52.0); Hemoglobin 8.8 GM/DL (14.0-18.0); Immature Granulocytes % 1.9 %; Immature Granulocytes Absolute 0.23 #; Lymphocytes # 1.7 10*3/uL (1.4-4.0); Lymphocytes % 13.9 % (21.2-54.2); Mean Corpuscular HGB Conc 29.5 GM/DL (32-36); Mean Platelet Volume 10.4 FL (9.6-12.0); Monocytes % 8.9 % (1.7-12.7); NRBC # 0.02 10*3/uL; Neutrophils % 74.3 % (38.7-73.9); Platelet Count 287 T/CUMM (130-400); Red Blood Count 3.17 MC/CUMM (3.8-5.5); Red Cell Distribution Width 15.5 % (9.3-17.3); White Blood Count 11.9 T/CUMM (4-12)
[2021-04-12 07:07] LABS: Eosinophils 2 % (0-10); Hypochromasia 1+; Lymphocytes 10 % (20-55); Microcytosis 1+; Platelet Estimate Adequate; Segmented Neutrophils 80 % (50-85); Total Cells Counted 100
[2021-04-12 07:33] LABS: Osmolality,Calculated 300.7 MOS/KG (273-304)
[2021-04-12] MEDS: predniSONE 20 MG TABLET PO SCH (08:55)
[2021-04-12] MEDS: INSULIN GLARGINE 100 UNIT/ML SUBCUT SCH ×2 (08:55→20:09)
[2021-04-12] MEDS: ASCORBIC ACID 500 MG TABLET PO SCH ×2 (08:55→20:09)
[2021-04-12] MEDS: CHOLECALCIFEROL 1,000 UNIT TABLET PO SCH (08:55)
[2021-04-12] MEDS: PANTOPRAZOLE 40 MG TABLET PO SCH ×2 (08:56→20:09)
[2021-04-12] MEDS: ZINC GLUCONATE 50 MG TABLET PO SCH (08:56)
[2021-04-12 11:14] LABS: ABG Base Excess 9.6 MMOL/L (-2.5-2.5); ABG HCO3 33.3 MMOL/L (20-26); ABG Oxygen Saturation 93.9 % (95-100); ABG PCO2 50.2 MM HG (35-48); ABG PH 7.451 (7.35-7.45); ABG PO2 70.9 MM HG (80-95); ABG TCO2 32.2 MMOL/L (23-27)
[2021-04-12] MEDS ORDERED: MORPHINE 2 MG/1 ML SYRINGE IV PRN (11:16)
[2021-04-12] MEDS: DIGOXIN 0.125 MG TABLET PO SCH (14:30)
[2021-04-12] MEDS: ENOXAPARIN 40 MG/0.4 ML SYRINGE SUBCUT SCH (20:08)
[2021-04-12] MEDS: ATORVASTATIN 20 MG TABLET PO SCH (20:23)
[2021-04-13] MEDS: ACETYLCYSTEINE 20% 800 MG/4 ML VIAL RESP TX SCH ×5 (00:07→21:32)
[2021-04-13] MEDS: ALBUTEROL/IPRATROPIUM 3 ML NEB RESP TX SCH ×4 (00:07→19:00)
[2021-04-13] MEDS: MEROPENEM 500 MG in SODIUM CHLORIDE 0.9% 100 ML IV SCH ×4 (00:37→18:48)
[2021-04-13] MEDS: INSULIN LISPRO 100 UNIT/ML SUBCUT SCH ×4 (00:37→18:48)
[2021-04-13 02:20] LABS: ABG Base Excess 8.8 MMOL/L (-2.5-2.5); ABG HCO3 32.6 MMOL/L (20-26); ABG Oxygen Saturation 98.6 % (95-100); ABG PCO2 54.2 MM HG (35-48); ABG PH 7.416 (7.35-7.45); ABG TCO2 32.1 MMOL/L (23-27)
[2021-04-13 04:40] LABS: Basophils % 0.2 % (0.0-0.8); Eosinophils # 0.1 10*3/uL (0.0-0.87); Eosinophils % 0.8 % (0.00-10.9); Hematocrit 28.9 VOL% (42.0-52.0); Hemoglobin 8.3 GM/DL (14.0-18.0); Immature Granulocytes % 3.4 %; Lymphocytes # 2.2 10*3/uL (1.4-4.0); Lymphocytes % 18.6 % (21.2-54.2); Mean Corpuscular HGB Conc 28.7 GM/DL (32-36); Mean Corpuscular Volume 96.3 FL (87-102); Mean Platelet Volume 10.3 FL (9.6-12.0); Monocytes % 8.2 % (1.7-12.7); NRBC # 0.02 10*3/uL; Neutrophils % 68.8 % (38.7-73.9); Platelet Count 281 T/CUMM (130-400); Red Cell Distribution Width 15.6 % (9.3-17.3); White Blood Count 11.7 T/CUMM (4-12)
[2021-04-13 05:05] LABS: Calcium 9.7 MG/DL (8.5-10.1); Osmolality,Calculated 302.6 MOS/KG (273-304); Potassium 4.1 MMOL/L (3.5-5.1)
[2021-04-13 05:17] LABS: Hypochromasia 1+; Microcytosis 1+
[2021-04-13] MEDS: INSULIN GLARGINE 100 UNIT/ML SUBCUT SCH ×2 (08:04→20:22)
[2021-04-13] MEDS: PANTOPRAZOLE 40 MG TABLET PO SCH ×2 (08:05→20:24)
[2021-04-13] MEDS: CHOLECALCIFEROL 1,000 UNIT TABLET PO SCH (08:05)
[2021-04-13] MEDS: ZINC GLUCONATE 50 MG TABLET PO SCH (08:05)
[2021-04-13] MEDS: predniSONE 20 MG TABLET PO SCH (08:05)
[2021-04-13] MEDS: ASCORBIC ACID 500 MG TABLET PO SCH ×2 (08:05→20:23)
[2021-04-13] MEDS: DIGOXIN 0.125 MG TABLET PO SCH (12:47)
[2021-04-13] MEDS: ENOXAPARIN 40 MG/0.4 ML SYRINGE SUBCUT SCH (20:22)
[2021-04-13] MEDS: ATORVASTATIN 20 MG TABLET PO SCH (20:23)
[2021-04-14] MEDS: INSULIN LISPRO 100 UNIT/ML SUBCUT SCH ×4 (00:18→17:53)
[2021-04-14] MEDS: MEROPENEM 500 MG in SODIUM CHLORIDE 0.9% 100 ML IV SCH ×4 (00:37→20:01)
[2021-04-14] MEDS: ACETYLCYSTEINE 20% 800 MG/4 ML VIAL RESP TX SCH ×2 (01:20→18:42)
[2021-04-14] MEDS: ALBUTEROL/IPRATROPIUM 3 ML NEB RESP TX SCH ×3 (01:20→18:42)
[2021-04-14 03:23] LABS: ABG Base Excess 10.3 MMOL/L (-2.5-2.5); ABG HCO3 37.3 MMOL/L (20-26); ABG Oxygen Saturation 98.6 % (95-100); ABG PCO2 65.9 MM HG (35-48); ABG PH 7.371 (7.35-7.45); ABG PO2 155.3 MM HG (80-95); ABG TCO2 39.4 MMOL/L (23-27)
[2021-04-14 04:06] LABS: Basophils % 0.2 % (0.0-0.8); Eosinophils # 0.1 10*3/uL (0.0-0.87); Eosinophils % 0.7 % (0.00-10.9); Hematocrit 29.7 VOL% (42.0-52.0); Hemoglobin 8.7 GM/DL (14.0-18.0); Immature Granulocytes % 2.7 %; Immature Granulocytes Absolute 0.34 #; Lymphocytes # 2.3 10*3/uL (1.4-4.0); Lymphocytes % 18.4 % (21.2-54.2); Mean Corpuscular HGB Conc 29.3 GM/DL (32-36); Mean Corpuscular Volume 95.8 FL (87-102); Mean Platelet Volume 10.8 FL (9.6-12.0); Monocytes % 7.4 % (1.7-12.7); NRBC # 0.03 10*3/uL; Neutrophils % 70.6 % (38.7-73.9); Platelet Count 338 T/CUMM (130-400); Red Cell Distribution Width 15.3 % (9.3-17.3); White Blood Count 12.8 T/CUMM (4-12)
[2021-04-14 04:21] LABS: Calcium 9.8 MG/DL (8.5-10.1); Osmolality,Calculated 302.7 MOS/KG (273-304); Potassium 4.1 MMOL/L (3.5-5.1)
[2021-04-14] MEDS: ZINC GLUCONATE 50 MG TABLET PO SCH (09:09)
[2021-04-14] MEDS: INSULIN GLARGINE 100 UNIT/ML SUBCUT SCH ×2 (09:09→20:31)
[2021-04-14] MEDS: PANTOPRAZOLE 40 MG TABLET PO SCH ×2 (09:09→20:31)
[2021-04-14] MEDS: ASCORBIC ACID 500 MG TABLET PO SCH ×2 (09:09→20:31)
[2021-04-14] MEDS: predniSONE 20 MG TABLET PO SCH (09:09)
[2021-04-14] MEDS: CHOLECALCIFEROL 1,000 UNIT TABLET PO SCH (09:09)
[2021-04-14] MEDS: DIGOXIN 0.125 MG TABLET PO SCH (14:50)
[2021-04-14] MEDS: ATORVASTATIN 20 MG TABLET PO SCH (20:31)
[2021-04-14] MEDS: ENOXAPARIN 40 MG/0.4 ML SYRINGE SUBCUT SCH (20:31)
[2021-04-15] MEDS: INSULIN LISPRO 100 UNIT/ML SUBCUT SCH ×5 (00:05→23:46)
[2021-04-15] MEDS: ACETYLCYSTEINE 20% 800 MG/4 ML VIAL RESP TX SCH ×4 (00:46→09:32)
[2021-04-15] MEDS: ALBUTEROL/IPRATROPIUM 3 ML NEB RESP TX SCH ×5 (00:46→19:30)
[2021-04-15] MEDS: MEROPENEM 500 MG in SODIUM CHLORIDE 0.9% 100 ML IV SCH ×3 (04:06→14:33)
[2021-04-15 04:39] LABS: Calcium 9.7 MG/DL (8.5-10.1); Osmolality,Calculated 299.8 MOS/KG (273-304); Potassium 4.1 MMOL/L (3.5-5.1)
[2021-04-15] MEDS: CHOLECALCIFEROL 1,000 UNIT TABLET PO SCH (08:59)
[2021-04-15] MEDS: predniSONE 20 MG TABLET PO SCH (09:01)
[2021-04-15] MEDS: PANTOPRAZOLE 40 MG TABLET PO SCH ×2 (09:01→20:45)
[2021-04-15] MEDS: ZINC GLUCONATE 50 MG TABLET PO SCH (09:02)
[2021-04-15] MEDS: ASCORBIC ACID 500 MG TABLET PO SCH ×2 (09:02→20:45)
[2021-04-15] MEDS: INSULIN GLARGINE 100 UNIT/ML SUBCUT SCH ×2 (09:04→20:45)
[2021-04-15] MEDS: METOPROLOL TARTRATE 25 MG TABLET PO SCH ×2 (11:57→20:45)
[2021-04-15] MEDS: DIGOXIN 0.125 MG TABLET PO SCH (13:34)
[2021-04-15] MEDS: ATORVASTATIN 20 MG TABLET PO SCH (20:45)
[2021-04-15] MEDS: ENOXAPARIN 40 MG/0.4 ML SYRINGE SUBCUT SCH (20:45)
[2021-04-16] MEDS: ALBUTEROL/IPRATROPIUM 3 ML NEB RESP TX SCH ×4 (00:36→18:47)
[2021-04-16 03:34] LABS: ABG Base Excess 10.2 MMOL/L (-2.5-2.5); ABG HCO3 35.3 MMOL/L (20-26); ABG PCO2 50.4 MM HG (35-48); ABG PH 7.463 (7.35-7.45); ABG PO2 82.9 MM HG (80-95); ABG TCO2 36.8 MMOL/L (23-27)
[2021-04-16 05:33] LABS: Basophils % 0.1 % (0.0-0.8); Eosinophils # 0.1 10*3/uL (0.0-0.87); Eosinophils % 0.6 % (0.00-10.9); Hematocrit 30.7 VOL% (42.0-52.0); Immature Granulocytes % 1.9 %; Immature Granulocytes Absolute 0.29 #; Lymphocytes # 2.8 10*3/uL (1.4-4.0); Lymphocytes % 18.5 % (21.2-54.2); Mean Corpuscular HGB Conc 29.3 GM/DL (32-36); Mean Corpuscular Volume 94.5 FL (87-102); Mean Platelet Volume 10.9 FL (9.6-12.0); Monocytes % 4.9 % (1.7-12.7); NRBC # 0.04 10*3/uL; Platelet Count 379 T/CUMM (130-400); Red Blood Count 3.25 MC/CUMM (3.8-5.5); Red Cell Distribution Width 15.6 % (9.3-17.3)
[2021-04-16] MEDS: INSULIN LISPRO 100 UNIT/ML SUBCUT SCH ×3 (05:43→17:19)
[2021-04-16 05:45] LABS: Calcium 9.9 MG/DL (8.5-10.1); Osmolality,Calculated 294.1 MOS/KG (273-304); Potassium 4.2 MMOL/L (3.5-5.1)
[2021-04-16] MEDS ORDERED: MEROPENEM 2,000 MG in SODIUM CHLORIDE 0.9% 100 ML IV SCH (08:00)
[2021-04-16] MEDS: INSULIN GLARGINE 100 UNIT/ML SUBCUT SCH ×2 (08:09→20:32)
[2021-04-16] MEDS: CHOLECALCIFEROL 1,000 UNIT TABLET PO SCH (08:10)
[2021-04-16] MEDS: METOPROLOL TARTRATE 25 MG TABLET PO SCH ×2 (08:10→20:41)
[2021-04-16] MEDS: PANTOPRAZOLE 40 MG TABLET PO SCH ×2 (08:11→20:41)
[2021-04-16] MEDS: ASCORBIC ACID 500 MG TABLET PO SCH ×2 (08:11→20:41)
[2021-04-16] MEDS: ZINC GLUCONATE 50 MG TABLET PO SCH (08:11)
[2021-04-16] MEDS: predniSONE 20 MG TABLET PO SCH (08:11)
[2021-04-16] MEDS: ACETAMINOPHEN 325 MG TABLET PO PRN (09:50)
[2021-04-16] MEDS: MEROPENEM 500 MG in SODIUM CHLORIDE 0.9% 100 ML IV SCH ×3 (09:50→20:34)
[2021-04-16] MEDS: DIGOXIN 0.125 MG TABLET PO SCH (13:14)
[2021-04-16] MEDS: ENOXAPARIN 40 MG/0.4 ML SYRINGE SUBCUT SCH (20:32)
[2021-04-16] MEDS: ATORVASTATIN 20 MG TABLET PO SCH (20:41)
[2021-04-17] MEDS: INSULIN LISPRO 100 UNIT/ML SUBCUT SCH ×4 (02:28→18:03)
[2021-04-17] MEDS: MEROPENEM 500 MG in SODIUM CHLORIDE 0.9% 100 ML IV SCH ×4 (02:52→22:00)
[2021-04-17 04:36] LABS: ABG Base Excess 7.9 MMOL/L (-2.5-2.5); ABG HCO3 31.7 MMOL/L (20-26); ABG Oxygen Saturation 99.5 % (95-100); ABG PCO2 53.4 MM HG (35-48); ABG PH 7.415 (7.35-7.45); ABG TCO2 29.9 MMOL/L (23-27)
[2021-04-17 05:12] LABS: Basophils % 0.2 % (0.0-0.8); Eosinophils # 0.1 10*3/uL (0.0-0.87); Eosinophils % 0.7 % (0.00-10.9); Hematocrit 29.6 VOL% (42.0-52.0); Hemoglobin 8.8 GM/DL (14.0-18.0); Immature Granulocytes % 1.5 %; Immature Granulocytes Absolute 0.22 #; Lymphocytes # 2.9 10*3/uL (1.4-4.0); Lymphocytes % 19.3 % (21.2-54.2); Mean Corpuscular HGB Conc 29.7 GM/DL (32-36); Mean Corpuscular Volume 92.2 FL (87-102); Mean Platelet Volume 10.8 FL (9.6-12.0); Monocytes % 5.3 % (1.7-12.7); NRBC # 0.02 10*3/uL; Platelet Count 410 T/CUMM (130-400); Red Blood Count 3.21 MC/CUMM (3.8-5.5); Red Cell Distribution Width 15.3 % (9.3-17.3)
[2021-04-17 05:43] LABS: Calcium 9.8 MG/DL (8.5-10.1); Osmolality,Calculated 287.5 MOS/KG (273-304); Potassium 4.6 MMOL/L (3.5-5.1)
[2021-04-17 05:44] LABS: Calcium 9.8 MG/DL (8.5-10.1); Osmolality,Calculated 292.3 MOS/KG (273-304); Potassium 4.1 MMOL/L (3.5-5.1)
[2021-04-17] MEDS: ALBUTEROL/IPRATROPIUM 3 ML NEB RESP TX SCH ×4 (07:40→19:50)
[2021-04-17] MEDS: INSULIN GLARGINE 100 UNIT/ML SUBCUT SCH ×2 (08:02→21:44)
[2021-04-17] MEDS: CHOLECALCIFEROL 1,000 UNIT TABLET PO SCH (08:03)
[2021-04-17] MEDS: PANTOPRAZOLE 40 MG TABLET PO SCH ×2 (08:03→21:45)
[2021-04-17] MEDS: predniSONE 20 MG TABLET PO SCH (08:03)
[2021-04-17] MEDS: METOPROLOL TARTRATE 25 MG TABLET PO SCH ×2 (08:03→21:44)
[2021-04-17] MEDS: ASCORBIC ACID 500 MG TABLET PO SCH ×2 (08:03→21:44)
[2021-04-17] MEDS: ZINC GLUCONATE 50 MG TABLET PO SCH (08:04)
[2021-04-17] MEDS: DIGOXIN 0.125 MG TABLET PO SCH (13:20)
[2021-04-17] MEDS: ENOXAPARIN 40 MG/0.4 ML SYRINGE SUBCUT SCH (21:44)
[2021-04-17] MEDS: ATORVASTATIN 20 MG TABLET PO SCH (21:45)
[2021-04-18] MEDS: INSULIN LISPRO 100 UNIT/ML SUBCUT SCH ×4 (00:31→17:36)
[2021-04-18] MEDS: ALBUTEROL/IPRATROPIUM 3 ML NEB RESP TX SCH ×4 (01:27→20:30)
[2021-04-18] MEDS: MEROPENEM 500 MG in SODIUM CHLORIDE 0.9% 100 ML IV SCH ×4 (02:55→21:46)
[2021-04-18 04:29] LABS: Allen Test Positive
[2021-04-18 04:30] LABS: ABG Base Excess 10.7 MMOL/L (-2.5-2.5); ABG HCO3 34.8 MMOL/L (20-26); ABG Oxygen Saturation 94.2 % (95-100); ABG PCO2 44.9 MM HG (35-48); ABG PH 7.507 (7.35-7.45); ABG PO2 71.5 MM HG (80-95); ABG TCO2 36.2 MMOL/L (23-27)
[2021-04-18 07:54] LABS: Basophils % 0.3 % (0.0-0.8); Eosinophils # 0.1 10*3/uL (0.0-0.87); Hemoglobin 8.6 GM/DL (14.0-18.0); Immature Granulocytes % 1.2 %; Immature Granulocytes Absolute 0.16 #; Lymphocytes # 2.6 10*3/uL (1.4-4.0); Mean Corpuscular HGB Conc 30.7 GM/DL (32-36); Mean Corpuscular Volume 90.3 FL (87-102); Mean Platelet Volume 10.6 FL (9.6-12.0); Monocytes % 5.7 % (1.7-12.7); Neutrophils % 72.8 % (38.7-73.9); Platelet Count 431 T/CUMM (130-400); Red Cell Distribution Width 15.3 % (9.3-17.3); White Blood Count 13.8 T/CUMM (4-12)
[2021-04-18] MEDS: CHOLECALCIFEROL 1,000 UNIT TABLET PO SCH (08:07)
[2021-04-18] MEDS: INSULIN GLARGINE 100 UNIT/ML SUBCUT SCH ×2 (08:07→21:18)
[2021-04-18] MEDS: ASCORBIC ACID 500 MG TABLET PO SCH ×2 (08:07→21:16)
[2021-04-18] MEDS: predniSONE 20 MG TABLET PO SCH (08:08)
[2021-04-18] MEDS: ZINC GLUCONATE 50 MG TABLET PO SCH (08:08)
[2021-04-18] MEDS: PANTOPRAZOLE 40 MG TABLET PO SCH ×2 (08:08→21:16)
[2021-04-18] MEDS: METOPROLOL TARTRATE 25 MG TABLET PO SCH ×2 (08:08→21:16)
[2021-04-18 08:20] LABS: Calcium 9.6 MG/DL (8.5-10.1); Osmolality,Calculated 278.8 MOS/KG (273-304); Potassium 4.3 MMOL/L (3.5-5.1)
[2021-04-18] MEDS ORDERED: INFLUENZA VIRUS VACCINE 0.5 ML SYRINGE IM ONE (09:00)
[2021-04-18] MEDS: ACETAMINOPHEN 325 MG TABLET PO PRN ×3 (10:19→21:17)
[2021-04-18] MEDS: DIGOXIN 0.125 MG TABLET PO SCH (14:01)
[2021-04-18] MEDS: ENOXAPARIN 40 MG/0.4 ML SYRINGE SUBCUT SCH (21:17)
[2021-04-18] MEDS: ATORVASTATIN 20 MG TABLET PO SCH (21:17)
[2021-04-19] MEDS: INSULIN LISPRO 100 UNIT/ML SUBCUT SCH ×4 (00:11→18:00)
[2021-04-19] MEDS: ALBUTEROL/IPRATROPIUM 3 ML NEB RESP TX SCH ×4 (00:17→20:00)
[2021-04-19] MEDS: MEROPENEM 500 MG in SODIUM CHLORIDE 0.9% 100 ML IV SCH ×4 (02:30→22:06)
[2021-04-19 05:39] LABS: Basophils # 0.1 10*3/uL (0.0-0.2); Basophils % 0.4 % (0.0-0.8); Eosinophils # 0.1 10*3/uL (0.0-0.87); Eosinophils % 0.7 % (0.00-10.9); Hematocrit 30.9 VOL% (42.0-52.0); Hemoglobin 9.4 GM/DL (14.0-18.0); Immature Granulocytes % 1.2 %; Lymphocytes # 3.1 10*3/uL (1.4-4.0); Lymphocytes % 19.1 % (21.2-54.2); Mean Corpuscular HGB Conc 30.4 GM/DL (32-36); Mean Corpuscular Volume 90.6 FL (87-102); Mean Platelet Volume 10.8 FL (9.6-12.0); Monocytes % 5.5 % (1.7-12.7); Neutrophils % 73.1 % (38.7-73.9); Platelet Count 473 T/CUMM (130-400); Red Blood Count 3.41 MC/CUMM (3.8-5.5); Red Cell Distribution Width 15.1 % (9.3-17.3); White Blood Count 16.4 T/CUMM (4-12)
[2021-04-19 06:21] LABS: Calcium 9.8 MG/DL (8.5-10.1); Osmolality,Calculated 270.4 MOS/KG (273-304); Potassium 4.4 MMOL/L (3.5-5.1)
[2021-04-19] MEDS: INSULIN GLARGINE 100 UNIT/ML SUBCUT SCH ×2 (09:17→22:07)
[2021-04-19] MEDS: predniSONE 20 MG TABLET PO SCH (09:18)
[2021-04-19] MEDS: ZINC GLUCONATE 50 MG TABLET PO SCH (09:18)
[2021-04-19] MEDS: ASCORBIC ACID 500 MG TABLET PO SCH ×2 (09:18→22:06)
[2021-04-19] MEDS: PANTOPRAZOLE 40 MG TABLET PO SCH ×2 (09:18→22:07)
[2021-04-19] MEDS: METOPROLOL TARTRATE 25 MG TABLET PO SCH ×2 (09:18→22:07)
[2021-04-19] MEDS: CHOLECALCIFEROL 1,000 UNIT TABLET PO SCH (09:18)
[2021-04-19] MEDS: DIGOXIN 0.125 MG TABLET PO SCH (12:18)
[2021-04-19] MEDS: ATORVASTATIN 20 MG TABLET PO SCH (22:07)
[2021-04-19] MEDS: ENOXAPARIN 40 MG/0.4 ML SYRINGE SUBCUT SCH (22:08)
[2021-04-19] MEDS: ACETAMINOPHEN 325 MG TABLET PO PRN (22:19)
[2021-04-20] MEDS: INSULIN LISPRO 100 UNIT/ML SUBCUT SCH ×4 (02:48→17:26)
[2021-04-20] MEDS: MEROPENEM 500 MG in SODIUM CHLORIDE 0.9% 100 ML IV SCH ×4 (05:16→22:01)
[2021-04-20 05:51] LABS: Basophils # 0.1 10*3/uL (0.0-0.2); Basophils % 0.4 % (0.0-0.8); Eosinophils # 0.1 10*3/uL (0.0-0.87); Eosinophils % 0.7 % (0.00-10.9); Hemoglobin 8.8 GM/DL (14.0-18.0); Immature Granulocytes % 1.2 %; Immature Granulocytes Absolute 0.18 #; Lymphocytes # 3.1 10*3/uL (1.4-4.0); Lymphocytes % 19.8 % (21.2-54.2); Mean Corpuscular HGB Conc 31.4 GM/DL (32-36); Mean Corpuscular Volume 88.6 FL (87-102); Mean Platelet Volume 10.2 FL (9.6-12.0); Neutrophils % 70.9 % (38.7-73.9); Platelet Count 497 T/CUMM (130-400); Red Blood Count 3.16 MC/CUMM (3.8-5.5); Red Cell Distribution Width 15.4 % (9.3-17.3); White Blood Count 15.6 T/CUMM (4-12)
[2021-04-20 06:16] LABS: Calcium 9.3 MG/DL (8.5-10.1); Osmolality,Calculated 278.7 MOS/KG (273-304); Potassium 3.6 MMOL/L (3.5-5.1)
[2021-04-20] MEDS: ALBUTEROL/IPRATROPIUM 3 ML NEB RESP TX SCH ×4 (06:16→20:10)
[2021-04-20 07:39] LABS: Amorphous Crystals,Urine Few /HPF (Few); Bacteria,Urine Occasional /HPF (Few); Bilirubin,Urine Negative (Negative); Blood, Urine Negative (Negative); Glucose,Urine (UA) Negative (Negative); Ketones,Urine Negative (Negative); Mucus,Urine Occasional /LPF (Occasional); Nitrite,Urine Negative (Negative); Protein,Urine Negative; RBC,Urine 2 /HPF (0-4); Urine Appearance Slightly Hazy (Clear); Urine Color Yellow (Yellow); Urine Specific Gravity 1.015 (1.001-1.035); Urine Urobilinogen < 2.0 EU/DL (0.2-1.0)
[2021-04-20] MEDS: METOPROLOL TARTRATE 25 MG TABLET PO SCH ×2 (09:24→22:02)
[2021-04-20] MEDS: INSULIN GLARGINE 100 UNIT/ML SUBCUT SCH ×2 (09:24→22:03)
[2021-04-20] MEDS: CHOLECALCIFEROL 1,000 UNIT TABLET PO SCH (09:24)
[2021-04-20] MEDS: predniSONE 20 MG TABLET PO SCH (09:25)
[2021-04-20] MEDS: ZINC GLUCONATE 50 MG TABLET PO SCH (09:25)
[2021-04-20] MEDS: ASCORBIC ACID 500 MG TABLET PO SCH ×2 (09:25→22:02)
[2021-04-20] MEDS: PANTOPRAZOLE 40 MG TABLET PO SCH ×2 (09:25→22:02)
[2021-04-20] MEDS: DIGOXIN 0.125 MG TABLET PO SCH (12:31)
[2021-04-20] MEDS: ENOXAPARIN 40 MG/0.4 ML SYRINGE SUBCUT SCH (22:03)
[2021-04-20] MEDS: ATORVASTATIN 20 MG TABLET PO SCH (22:03)
[2021-04-21] MEDS: ALBUTEROL/IPRATROPIUM 3 ML NEB RESP TX SCH ×4 (00:50→20:40)
[2021-04-21] MEDS: INSULIN LISPRO 100 UNIT/ML SUBCUT SCH ×4 (04:11→17:59)
[2021-04-21] MEDS: MEROPENEM 500 MG in SODIUM CHLORIDE 0.9% 100 ML IV SCH ×4 (04:29→21:07)
[2021-04-21 07:24] LABS: Basophils # 0.1 10*3/uL (0.0-0.2); Basophils % 0.4 % (0.0-0.8); Eosinophils # 0.1 10*3/uL (0.0-0.87); Hematocrit 28.3 VOL% (42.0-52.0); Hemoglobin 8.6 GM/DL (14.0-18.0); Immature Granulocytes % 0.9 %; Immature Granulocytes Absolute 0.13 #; Mean Corpuscular HGB Conc 30.4 GM/DL (32-36); Mean Corpuscular Volume 88.7 FL (87-102); Mean Platelet Volume 9.8 FL (9.6-12.0); Monocytes % 8.3 % (1.7-12.7); Neutrophils % 68.4 % (38.7-73.9); Platelet Count 493 T/CUMM (130-400); Red Blood Count 3.19 MC/CUMM (3.8-5.5); Red Cell Distribution Width 15.5 % (9.3-17.3); White Blood Count 14.1 T/CUMM (4-12)
[2021-04-21 07:40] LABS: Calcium 9.3 MG/DL (8.5-10.1); Osmolality,Calculated 271.1 MOS/KG (273-304); Potassium 3.4 MMOL/L (3.5-5.1)
[2021-04-21] MEDS: INSULIN GLARGINE 100 UNIT/ML SUBCUT SCH ×2 (09:37→20:56)
[2021-04-21] MEDS: CHOLECALCIFEROL 1,000 UNIT TABLET PO SCH (09:37)
[2021-04-21] MEDS: PANTOPRAZOLE 40 MG TABLET PO SCH ×2 (09:37→20:55)
[2021-04-21] MEDS: ASCORBIC ACID 500 MG TABLET PO SCH ×2 (09:37→20:55)
[2021-04-21] MEDS: predniSONE 20 MG TABLET PO SCH (09:37)
[2021-04-21] MEDS: METOPROLOL TARTRATE 25 MG TABLET PO SCH ×2 (09:37→20:55)
[2021-04-21] MEDS: ZINC GLUCONATE 50 MG TABLET PO SCH (09:38)
[2021-04-21] MEDS: DIGOXIN 0.125 MG TABLET PO SCH (12:45)
[2021-04-21] MEDS: ATORVASTATIN 20 MG TABLET PO SCH (20:56)
[2021-04-21] MEDS: ENOXAPARIN 40 MG/0.4 ML SYRINGE SUBCUT SCH (20:56)
[2021-04-22] MEDS: INSULIN LISPRO 100 UNIT/ML SUBCUT SCH ×4 (01:10→18:31)
[2021-04-22] MEDS: ALBUTEROL/IPRATROPIUM 3 ML NEB RESP TX SCH ×4 (02:15→19:41)
[2021-04-22] MEDS: MEROPENEM 500 MG in SODIUM CHLORIDE 0.9% 100 ML IV SCH ×4 (02:26→20:51)
[2021-04-22 05:10] LABS: Basophils # 0.1 10*3/uL (0.0-0.2); Basophils % 0.5 % (0.0-0.8); Eosinophils # 0.1 10*3/uL (0.0-0.87); Eosinophils % 0.7 % (0.00-10.9); Hematocrit 28.2 VOL% (42.0-52.0); Hemoglobin 8.7 GM/DL (14.0-18.0); Immature Granulocytes Absolute 0.13 #; Lymphocytes # 2.8 10*3/uL (1.4-4.0); Lymphocytes % 21.3 % (21.2-54.2); Mean Corpuscular HGB Conc 30.9 GM/DL (32-36); Mean Corpuscular Volume 89.2 FL (87-102); Mean Platelet Volume 9.9 FL (9.6-12.0); Monocytes % 7.9 % (1.7-12.7); Neutrophils % 68.6 % (38.7-73.9); Platelet Count 509 T/CUMM (130-400); Red Blood Count 3.16 MC/CUMM (3.8-5.5); Red Cell Distribution Width 15.4 % (9.3-17.3); White Blood Count 13.1 T/CUMM (4-12)
[2021-04-22 05:47] LABS: Calcium 9.2 MG/DL (8.5-10.1); Osmolality,Calculated 274.7 MOS/KG (273-304); Potassium 3.4 MMOL/L (3.5-5.1)
[2021-04-22] MEDS: predniSONE 20 MG TABLET PO SCH (09:48)
[2021-04-22] MEDS: ASCORBIC ACID 500 MG TABLET PO SCH ×2 (09:48→20:52)
[2021-04-22] MEDS: CHOLECALCIFEROL 1,000 UNIT TABLET PO SCH (09:48)
[2021-04-22] MEDS: PANTOPRAZOLE 40 MG TABLET PO SCH ×2 (09:48→20:52)
[2021-04-22] MEDS: METOPROLOL TARTRATE 25 MG TABLET PO SCH ×2 (09:48→20:52)
[2021-04-22] MEDS: INSULIN GLARGINE 100 UNIT/ML SUBCUT SCH ×2 (09:49→21:19)
[2021-04-22] MEDS: ZINC GLUCONATE 50 MG TABLET PO SCH (09:51)
[2021-04-22] MEDS: DIGOXIN 0.125 MG TABLET PO SCH (15:10)
[2021-04-22] MEDS: ATORVASTATIN 20 MG TABLET PO SCH (20:52)
[2021-04-22] MEDS: ENOXAPARIN 40 MG/0.4 ML SYRINGE SUBCUT SCH (20:53)
[2021-04-23] MEDS: INSULIN LISPRO 100 UNIT/ML SUBCUT SCH ×4 (00:14→17:01)
[2021-04-23] MEDS: ALBUTEROL/IPRATROPIUM 3 ML NEB RESP TX SCH ×4 (00:53→20:45)
[2021-04-23] MEDS: MEROPENEM 500 MG in SODIUM CHLORIDE 0.9% 100 ML IV SCH ×3 (01:43→15:03)
[2021-04-23 05:07] LABS: Basophils # 0.1 10*3/uL (0.0-0.2); Basophils % 0.5 % (0.0-0.8); Eosinophils # 0.1 10*3/uL (0.0-0.87); Eosinophils % 0.8 % (0.00-10.9); Hematocrit 30.8 VOL% (42.0-52.0); Hemoglobin 9.4 GM/DL (14.0-18.0); Immature Granulocytes % 0.9 %; Immature Granulocytes Absolute 0.12 #; Lymphocytes # 3.1 10*3/uL (1.4-4.0); Lymphocytes % 23.1 % (21.2-54.2); Mean Corpuscular HGB Conc 30.5 GM/DL (32-36); Mean Corpuscular Volume 89.3 FL (87-102); Mean Platelet Volume 9.8 FL (9.6-12.0); Monocytes % 8.4 % (1.7-12.7); Neutrophils % 66.3 % (38.7-73.9); Platelet Count 512 T/CUMM (130-400); Red Blood Count 3.45 MC/CUMM (3.8-5.5); Red Cell Distribution Width 15.9 % (9.3-17.3); White Blood Count 13.2 T/CUMM (4-12)
[2021-04-23 05:21] LABS: Calcium 9.7 MG/DL (8.5-10.1); Osmolality,Calculated 273.8 MOS/KG (273-304); Potassium 3.9 MMOL/L (3.5-5.1)
[2021-04-23] MEDS: PANTOPRAZOLE 40 MG TABLET PO SCH ×2 (10:00→21:40)
[2021-04-23] MEDS: INSULIN GLARGINE 100 UNIT/ML SUBCUT SCH ×2 (10:00→21:41)
[2021-04-23] MEDS: ZINC GLUCONATE 50 MG TABLET PO SCH (10:00)
[2021-04-23] MEDS: predniSONE 20 MG TABLET PO SCH (10:00)
[2021-04-23] MEDS: ASCORBIC ACID 500 MG TABLET PO SCH ×2 (10:00→21:40)
[2021-04-23] MEDS: CHOLECALCIFEROL 1,000 UNIT TABLET PO SCH (10:00)
[2021-04-23] MEDS: METOPROLOL TARTRATE 25 MG TABLET PO SCH ×2 (10:01→21:40)
[2021-04-23] MEDS: DIGOXIN 0.125 MG TABLET PO SCH (15:03)
[2021-04-23] MEDS: ATORVASTATIN 20 MG TABLET PO SCH (21:40)
[2021-04-23] MEDS: ENOXAPARIN 40 MG/0.4 ML SYRINGE SUBCUT SCH (21:41)
[2021-04-24] MEDS: ALBUTEROL/IPRATROPIUM 3 ML NEB RESP TX SCH ×2 (00:05→07:40)
[2021-04-24] MEDS: INSULIN LISPRO 100 UNIT/ML SUBCUT SCH ×2 (00:44→07:02)
[2021-04-24 06:05] LABS: Basophils # 0.1 10*3/uL (0.0-0.2); Basophils % 0.6 % (0.0-0.8); Eosinophils # 0.1 10*3/uL (0.0-0.87); Eosinophils % 0.7 % (0.00-10.9); Hematocrit 32.2 VOL% (42.0-52.0); Hemoglobin 10.3 GM/DL (14.0-18.0); Immature Granulocytes % 0.9 %; Immature Granulocytes Absolute 0.13 #; Lymphocytes # 3.4 10*3/uL (1.4-4.0); Lymphocytes % 24.2 % (21.2-54.2); Mean Platelet Volume 11.7 FL (9.6-12.0); Monocytes % 8.6 % (1.7-12.7); NRBC # 0.02 10*3/uL; Platelet Count 420 T/CUMM (130-400); Red Blood Count 3.66 MC/CUMM (3.8-5.5); Red Cell Distribution Width 15.8 % (9.3-17.3); White Blood Count 13.9 T/CUMM (4-12)
[2021-04-24 06:50] LABS: Calcium 9.3 MG/DL (8.5-10.1); Osmolality,Calculated 266.2 MOS/KG (273-304); Potassium 4.2 MMOL/L (3.5-5.1)
[2021-04-24] MEDS: INSULIN GLARGINE 100 UNIT/ML SUBCUT SCH (08:44)
[2021-04-24] MEDS: CHOLECALCIFEROL 1,000 UNIT TABLET PO SCH (09:56)
[2021-04-24] MEDS: ENOXAPARIN 40 MG/0.4 ML SYRINGE SUBCUT SCH (09:57)
[2021-04-24] MEDS: predniSONE 20 MG TABLET PO SCH (09:57)
[2021-04-24] MEDS: METOPROLOL TARTRATE 25 MG TABLET PO SCH (09:57)
[2021-04-24] MEDS: PANTOPRAZOLE 40 MG TABLET PO SCH (09:57)
[2021-04-24] MEDS: ASCORBIC ACID 500 MG TABLET PO SCH (09:57)
[2021-04-24] MEDS: ZINC GLUCONATE 50 MG TABLET PO SCH (10:30)
[2021-04-24 11:34] VITALS: BP 131/77
== END 2021-04-24 12:17 | disposition home or self-care (01) | DRG 207 ==
LOC: EDBD → N.ED 22:49 → SUATTDRO 03-05 02:08 → N.EDINP 03-05 02:08 → N.2E 03-05 07:23 → N.CC 03-07 22:02 → N.TELEN 04-17 11:30
PROVIDERS: ADMIT Internal Medicine; ATTEND Emergency Medicine